=== PATIENT | female | born 1955 | race Caucasian/White ===

== ENCOUNTER 2016-08-08 19:26 | Inpatient (IN) | payer OTHER ==
[~2016-08-08] VITALS: Ht 165.1 cm; Wt 63.0 kg
[~2016-08-08 19:26] MED LIST: AMLO5TAB22 PO; APIDINJ2 SQ; CREON12 PO; ERGO50000 PO; HYDRO10 PO; INSU1INJ5 SQ; LORA0.5T PO; PROT40TA PO
[2016-08-08 19:31] VITALS: BP 90/56; PULSE 89; RESP 16; TEMP 98.7; O2SAT 98
[2016-08-08 19:59] VITALS: BP 83/52; PULSE 79; RESP 20; TEMP 97.7; O2SAT 97
[2016-08-08] MEDS ORDERED: AMLO5 PO (20:07)
[2016-08-08] MEDS ORDERED: APIDINJ SQ (20:07)
[2016-08-08] MEDS ORDERED: CREON12 PO (20:07)
[2016-08-08] MEDS ORDERED: PANT40TA3 PO (20:07)
[2016-08-08] MEDS ORDERED: LORA-373 PO (20:07)
[2016-08-08] MEDS ORDERED: NAPR220T95 PO (20:07)
[2016-08-08] MEDS ORDERED: INSU1INJ5 SQ (20:09)
[2016-08-08] MEDS ORDERED: DRIS50002 PO (20:11)
[2016-08-08] MEDS ORDERED: CORT5TAB PO (20:11)
[2016-08-08] MEDS ORDERED: HYDRO10 PO (20:11)
[2016-08-08] MEDS ORDERED: SODIUM CHLORIDE 0.9% FLUSH 5 ML FLUSH IVF PRN (20:15)
[2016-08-08 21:00] LABS: AUTOMATED NEUTROPHIL # 3.1 TH/MM3 (1.8-7.7); BASOPHIL % 0.5 % (0.0-2.0); EOSINOPHIL # 0.1 TH/MM3 (0-0.4); EOSINOPHIL % 1.8 % (0.0-4.0); HEMATOCRIT 40.1 % (35.0-46.0); HEMO FLAGS DIFF FINAL; LYMPH % 30.7 % (9.0-44.0); LYMPHOCYTE # 1.9 TH/MM3 (1.0-4.8); MEAN CELL VOLUME 90.6 FL (80.0-100.0); MEAN CORPUSCULAR HGB CONC 34.3 % (32.0-36.0); MONO % 16.9 % (0.0-8.0); NEUT % 50.1 % (16.0-70.0); PLATELET COUNT 196 TH/MM3 (150-450); RED BLOOD COUNT 4.43 MIL/MM3 (4.00-5.30); RED CELL DISTRIBUTION WIDTH 12.6 % (11.6-17.2); WHITE BLOOD COUNT 6.2 TH/MM3 (4.0-11.0)
[2016-08-08 21:14] LABS: APTT (PATIENT) 30.3 SEC (24.3-30.1); INTERNATIONAL NORMALIZED RATIO 1.1 RATIO; PROTHROMBIN TIME - PATIENT 12.2 SEC (9.8-11.6)
[2016-08-08 21:24] LABS: BICARBONATE 24.7 MEQ/L (21.0-32.0); POTASSIUM 3.6 MEQ/L (3.5-5.1)
[2016-08-08 21:28] LABS: INDIRECT BILIRUBIN 0.9 MG/DL (0.0-0.8); TOTAL BILIRUBIN ADULT 1.7 MG/DL (0.2-1.0)
[2016-08-08 21:32] VITALS: BP 97/55; PULSE 72; RESP 20; TEMP 98; O2SAT 99
[2016-08-08 21:33] VITALS: BP 72/46; PULSE 72; RESP 20; O2SAT 99
[2016-08-08] MEDS ORDERED: SODIUM CHLOR 0.9% 1000 ML INJ 1,000 ML IV ONE ×2 (22:00)
--- NOTE | 2016-08-08 22:00 | PD ---
HPI Chief Complaint: GI Complaint Time Seen by Provider: 19:49 Travel History International Travel<30 days: No Contact w/Intl Traveler<30days: No Traveled to known affect area: No History of Present Illness HPI 61yo F with metastatic melanoma with mets to abdomen, lung presents to the ED with c/o generalized weakness. Pt also with abdominal pain for 3 days. Pain is more right upper abdominal radiating to right scapula. +Nonbloody diarrhea. +Fever at home. Denies any chest pain, sob, n/v, focal weakness or numbness. Pt follows with Dr. Escobedo and is on an immuno therapy. PFSH Past Medical History Depression: Yes Cancer: Yes Cardiovascular Problems: Yes (HTN) Chemotherapy: Yes (APR 2015 ) Diabetes: Yes Patient Takes Glucophage: No Diminished Hearing: No Endocrine: No Gastrointestinal Disorders: Yes (Cholitis) GERD: Yes Genitourinary: No Hypertension: Yes Immune Disorder: No Implanted Vascular Access Dvce: Yes (l subclavian ) Musculoskeletal: No Neurologic: No Psychiatric: No Reproductive: No Respiratory: No Immunizations Current: No Radiation Therapy: Yes Triglycerides - High: Yes Tetanus Vaccination: < 5 Years Influenza Vaccination: Yes ?: Not Menopausal: Yes : 6 Para: 4 Miscarriage: 2 : 0 Ectopic : No Ovarian Cysts: No Dilation and Curettage (D&C): Yes Tubal Ligation: Yes Past Surgical History Section: No Genitourinary Surgery: Yes (hemorroids removed ) Gynecologic Surgery: Yes (tubal ligation ) Hysterectomy: No Thoracic Surgery: Yes (back cancer removal by dr. 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) Tobacco Use: No Substance Use: No Allergies-Medications (Allergen,Severity, Reaction): Coded Allergies: Penicillin (Verified Allergy, Severe, Anaphylaxis, 08/08/16) Reported Meds & Prescriptions Reported Meds & Active Scripts Active Reported Drisdol (Ergocalciferol) 50,000 Unit Cap 50,000 Units PO WEEKLY ON MONDAYS Cortef (Hydrocortisone) 5 Mg Tab 5 Mg PO HS Take with food to decrease GI upset Cortef (Hydrocortisone) 10 Mg Tab 10 Mg PO DAILY IN THE MORNING Take with food to decresae GI upset Levemir Flextouch Pen Inj (Insulin Detemir) 300 unit/3 ML Pen 5 Units SQ HS Apidra Inj (Insulin Glulisine Inj) 1,000 Unit/10 Ml Vial Unknown Dose SQ ACHS SLIDING SCALE Creon (Amylase/Lipase/Protease) 12,000-38,000-60,000 Units Cap 1 Cap PO TIDAC Lorazepam 0.5 Mg Tab 0.5 Mg PO Q4H PRN Pantoprazole (Pantoprazole Sodium) 40 Mg Tab 40 Mg PO DAILY Aleve (Naproxen Sodium) 220 Mg Tab 440 Mg PO DAILY PRN Norvasc (Amlodipine Besylate) 5 Mg Tab 5 Mg PO DAILY PRN Review of Systems Except as stated in HPI: all other systems reviewed are Neg Physical Exam Narrative GENERAL: 61yo F in mild distress. Flail appearing. SKIN: Warm and dry. HEAD: Atraumatic. Normocephalic. EYES: Pupils equal and round. No scleral icterus. No injection or drainage. ENT: No nasal bleeding or discharge. Mucous membranes pink and moist. NECK: Trachea midline. No JVD. CARDIOVASCULAR: Regular rate and rhythm. No murmur appreciated. RESPIRATORY: No accessory muscle use. Clear to auscultation. Breath sounds equal bilaterally. GASTROINTESTINAL: Abdomen soft, +TTP RUQ. No rebound tenderness or guarding. MUSCULOSKELETAL: No obvious deformities. No clubbing. No cyanosis. No edema. NEUROLOGICAL: Awake and alert. No obvious cranial nerve deficits. Motor grossly within normal limits. Normal speech. PSYCHIATRIC: Appropriate mood and affect; insight and judgment normal. Data Data Last Documented VS Vital Signs Date Time Temp Pulse Resp B/P Pulse Ox O2 Delivery O2 Flow Rate FiO2 08/08/16 21:33 72 20 72/46 99 08/08/16 21:32 98.0 Orders Basic Metabolic Panel (Bmp) (08/08/16 20:05) Complete Blood Count With Diff (08/08/16 20:05) Lipase (08/08/16 20:05) Prothrombin Time / Inr (Pt) (08/08/16 20:05) Act Partial Throm Time (Ptt) (08/08/16 20:05) Urinalysis - C+S If Indicated (08/08/16 20:05) Ct Abd/Pel W Iv Contrast(Rout) (08/08/16 20:05) Iv Access Insert/Monitor (08/08/16 20:05) Ecg Monitoring (08/08/16 20:05) Oximetry (08/08/16 20:05) Sodium Chloride 0.9% Flush (Ns Flush) (08/08/16 20:15) Hepatic Functional Panel (08/08/16 20:05) Sodium Chlor 0.9% 1000 Ml Inj (Ns 1000 M (08/08/16 22:00) Sodium Chlor 0.9% 1000 Ml Inj (Ns 1000 M (08/08/16 22:00) Ketorolac Inj (Toradol Inj) (08/08/16 22:30) Admit Order (Ed Use Only) (08/08/16 22:19) Admit To Inpatient (08/08/16 ) Vital Signs (Adult) Q4H (08/08/16 22:18) Activity Oob With Assistance (08/08/16 22:18) Diet Clear Liquid (08/09/16 Breakfast) Basic Metabolic Panel (Bmp) (08/09/16 06:00) Complete Blood Count With Diff (08/09/16 06:00) Scd Bilateral/Knee High ELIS.BID (08/08/16 22:18) Panda Bilateral/Knee High ELIS.QSHIFT (08/08/16 22:18) Morphine Inj (Morphine Inj) (08/08/16 22:30) Morphine Inj (Morphine Inj) (08/08/16 22:30) Naloxone Inj (Narcan Inj) (08/08/16 22:30) Inpatient Certification (08/08/16 ) Consult Medical Oncology (08/08/16 ) Labs Laboratory Tests Test 08/08/16 20:00 White Blood Count 6.2 TH/MM3 Red Blood Count 4.43 MIL/MM3 Hemoglobin 13.7 GM/DL Hematocrit 40.1 % Mean Corpuscular Volume 90.6 FL Mean Corpuscular Hemoglobin 31.0 PG Mean Corpuscular Hemoglobin 34.3 % Concent Red Cell Distribution Width 12.6 % Platelet Count 196 TH/MM3 Mean Platelet Volume 8.9 FL Neutrophils (%) (Auto) 50.1 % Lymphocytes (%) (Auto) 30.7 % Monocytes (%) (Auto) 16.9 % Eosinophils (%) (Auto) 1.8 % Basophils (%) (Auto) 0.5 % Neutrophils # (Auto) 3.1 TH/MM3 Lymphocytes # (Auto) 1.9 TH/MM3 Monocytes # (Auto) 1.1 TH/MM3 Eosinophils # (Auto) 0.1 TH/MM3 Basophils # (Auto) 0.0 TH/MM3 CBC Comment DIFF FINAL Differential Comment Prothrombin Time 12.2 SEC Prothromb Time International 1.1 RATIO Ratio Activated Partial 30.3 SEC Thromboplast Time Sodium Level 133 MEQ/L Potassium Level 3.6 MEQ/L Chloride Level 98 MEQ/L Carbon Dioxide Level 24.7 MEQ/L Anion Gap 10 MEQ/L Blood Urea Nitrogen 11 MG/DL Creatinine 1.31 MG/DL Estimat Glomerular Filtration 41 ML/MIN Rate Random Glucose 130 MG/DL Calcium Level 8.1 MG/DL Total Bilirubin 1.7 MG/DL Direct Bilirubin 0.8 MG/DL Indirect Bilirubin 0.9 MG/DL Aspartate Amino Transf 69 U/L (AST/SGOT) Alanine Aminotransferase 40 U/L (ALT/SGPT) Alkaline Phosphatase 182 U/L Total Protein 6.3 GM/DL Albumin 3.2 GM/DL Lipase 28 U/L [facility] Medical Decision Making Medical Screen Exam Complete: Yes Emergency Medical Condition: Yes Differential Diagnosis Electrolyte abnormality vs. dehydration vs. cholecystitis vs. metastatic disease Narrative Course 61yo F with metastatic melanoma here with generalized weakness, diarrhea and abdominal pain. Pt was also hypotensive and responded to NS IVF. Pt was never tachycardic but had fever at home. Labs reviewed, no leukocytosis. Bilirubin is elevated as well as AST and alk phos. Discussed with Dr. Escobedo who knows patient well and thinks this may be reaction to her treatment with ipilimumab. He agreed with CT a/p and recommended admission and empirically obtaining blood cultures and antibiotics. Pt given cefepime 2gm IV. Pt given toradol for pain since she didnt want narcotics initially. Discussed with Dr. Cline and accepted to his service. Critical Care Narrative Aggregate critical care time was 35 minutes. Time to perform other separately billable procedures was not included in the critical care time. My time did not include minutes spent treating any other patients simultaneously or on activities that did not directly contribute to the patient's treatment. The services I provided to this patient were to treat and/or prevent clinically significant deterioration that could result in: cardiovascular collapse or . I provided critical care services requiring my management, as noted below: Chart data review, documentation time, medication orders and management, vital sign assessments/reviewing monitor data, ordering and reviewing lab tests, ordering and interpreting/reviewing x-rays and diagnostic studies, care of the patient and discussion of the patient with the admitting physicians. Diagnosis Primary Impression: Metastatic melanoma Additional Impression: chemotherapy induced colitis Admitting Information Admitting Physician Requests: Kiara Long DO Aug 08, 2016 22:00
[2016-08-08] MEDS ORDERED: KETOROLAC TROMETHAMINE 30 MG/ML (IVP) VIAL IV PUSH ONE (22:30)
[2016-08-08] MEDS ORDERED: NALOXONE HCL 0.4 MG/ML AMP IV PRN (22:30)
[2016-08-08] MEDS ORDERED: MORPHINE SULFATE 4 MG/ML INJ IV PRN (22:30)
[2016-08-08 23:09] VITALS: BP 91/52; PULSE 72; RESP 20; O2SAT 98
[2016-08-08] MEDS ORDERED: CEFEPIME INJ 2,000 MG in SODIUM CHLORIDE 0.9% INJ 100 ML IV ONE (23:30)
[2016-08-08] MEDS ORDERED: IOHEXOL 350 MG/ML 10 ML VIAL (for RAD DIAG) IV ONE (23:42)
[2016-08-09] VITALS (12 sets, daily range): BP systolic 79–111; BP diastolic 47–58; PULSE 71–88; RESP 18–21; TEMP 96–98.9; O2SAT 94–100
--- NOTE | 2016-08-09 00:07 | HHI.HP ---
[facility] Service [facility] Primary Care Physician Terrell Escobedo MD Admission Diagnosis Abdominal pain Diagnoses: Chief Complaint: Abdominal pain, diarrhea Travel History International Travel<30 Days: No Contact w/Intl Traveler <30 Da: No Traveled to Known Affected Are: No History of Present Illness 61 Y/o with a history of DM type 1 presented to the ED with complaints of abdominal pain and diarrhea since Sunday. Patient states she ate pork ribs on Sunday and ever since she has been having diarrhea, severe abdominal cramping and generalized weakness. He was also sick with diarrhea as well. Patient states she felt feverish at home but did not take her temperature. 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 Her last does of immunotherapy was 2 weeks ago and she receives it every 3 weeks. She denies any chest pain, or short of breath. 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, immunotherapy every 3 weeks DM type 1 Colitis Past Surgical History Tubal Tonsillectomy Reported Medications Reported Meds & Active Scripts Active Reported Drisdol (Ergocalciferol) 50,000 Unit Cap 50,000 Units PO WEEKLY ON MONDAYS Cortef (Hydrocortisone) 5 Mg Tab 5 Mg PO HS Take with food to decrease GI upset Cortef (Hydrocortisone) 10 Mg Tab 10 Mg PO DAILY IN THE MORNING Take with food to decresae GI upset Levemir Flextouch Pen Inj (Insulin Detemir) 300 unit/3 ML Pen 5 Units SQ HS Apidra Inj (Insulin Glulisine Inj) 1,000 Unit/10 Ml Vial Unknown Dose SQ ACHS SLIDING SCALE Creon (Amylase/Lipase/Protease) 12,000-38,000-60,000 Units Cap 1 Cap PO TIDAC Lorazepam 0.5 Mg Tab 0.5 Mg PO Q4H PRN Pantoprazole (Pantoprazole Sodium) 40 Mg Tab 40 Mg PO DAILY Aleve (Naproxen Sodium) 220 Mg Tab 440 Mg PO DAILY PRN Norvasc (Amlodipine Besylate) 5 Mg Tab 5 Mg PO DAILY PRN Allergies: Coded Allergies: Penicillin (Verified Allergy, Severe, Anaphylaxis, 08/08/16) Active Ordered Medications Current Medications Medications (Trade) Dose Ordered Sig/Thierno Route Start Time Stop Time Status Last Admin (NS Flush) 2 ml UNSCH PRN IVF 08/08/16 20:15 (Morphine Inj) 2 mg Q3H PRN IV 08/08/16 22:30 (Morphine Inj) 3 mg Q3H PRN IV 08/08/16 22:30 (Narcan Inj) 0.4 mg UNSCH PRN IV 08/08/16 22:30 Family History Patient denies any cardiac history or diabetes. Social History Tobacco use: Quit 16 years ago Alcohol use: wine nightly Physical Exam Vital Signs Vital Signs Date Time Temp Pulse Resp B/P Pulse Ox O2 Delivery O2 Flow Rate FiO2 08/08/16 23:09 72 20 91/52 98 08/08/16 21:33 72 20 72/46 99 08/08/16 21:32 98.0 72 20 97/55 99 08/08/16 19:59 97.7 79 20 83/52 97 08/08/16 19:51 20 08/08/16 19:31 98.7 89 16 90/56 98 Physical Exam GENERAL: This is a well-nourished, well-developed patient, in no apparent distress. SKIN: No rashes, ecchymoses or lesions. Cool and dry. HEAD: Atraumatic. Normocephalic. No temporal or scalp tenderness. EYES: Pupils equal round and reactive. No injection or drainage. ENT: Nose without bleeding, purulent drainage or septal hematoma. . Airway patent. NECK: Trachea midline. No JVD or lymphadenopathy. Supple, nontender, no meningeal signs. CARDIOVASCULAR: Regular rate and rhythm without murmurs, gallops, or rubs. RESPIRATORY: Clear to auscultation. Breath sounds equal bilaterally. No wheezes , rales, or rhonchi. GASTROINTESTINAL: Abdomen soft, tender, nondistended. No hepato-splenomegaly, or palpable masses. No guarding. MUSCULOSKELETAL: Extremities without clubbing, cyanosis, or edema. No joint tenderness, effusion, or edema noted. No calf tenderness. NEUROLOGICAL: Awake and alert. Motor and sensory grossly within normal limits. Normal speech. Laboratory Laboratory Tests Test 08/08/16 20:00 White Blood Count 6.2 Red Blood Count 4.43 Hemoglobin 13.7 Hematocrit 40.1 Mean Corpuscular Volume 90.6 Mean Corpuscular Hemoglobin 31.0 Mean Corpuscular Hemoglobin 34.3 Concent Red Cell Distribution Width 12.6 Platelet Count 196 Mean Platelet Volume 8.9 Neutrophils (%) (Auto) 50.1 Lymphocytes (%) (Auto) 30.7 Monocytes (%) (Auto) 16.9 Eosinophils (%) (Auto) 1.8 Basophils (%) (Auto) 0.5 Neutrophils # (Auto) 3.1 Lymphocytes # (Auto) 1.9 Monocytes # (Auto) 1.1 Eosinophils # (Auto) 0.1 Basophils # (Auto) 0.0 CBC Comment DIFF FINAL Differential Comment Prothrombin Time 12.2 Prothromb Time International 1.1 Ratio Activated Partial 30.3 Thromboplast Time Sodium Level 133 Potassium Level 3.6 Chloride Level 98 Carbon Dioxide Level 24.7 Anion Gap 10 Blood Urea Nitrogen 11 Creatinine 1.31 Estimat Glomerular Filtration 41 Rate Random Glucose 130 Calcium Level 8.1 Total Bilirubin 1.7 Direct Bilirubin 0.8 Indirect Bilirubin 0.9 Aspartate Amino Transf 69 (AST/SGOT) Alanine Aminotransferase 40 (ALT/SGPT) Alkaline Phosphatase 182 Total Protein 6.3 Albumin 3.2 Lipase 28 Result Diagram: 08/08/16199908/08/161999 Imaging Last Impressions Abdomen/Pelvis CT 08/08/162004 Signed Impressions: Service Date/Time: Monday, August 08, 2016 23:34 - CONCLUSION: 1. Nonspecific diffuse gallbladder distention with pericholecystic fluid. This finding could be further evaluated with ultrasound. 2. Diffuse hepatic hypodensity indicating hepatic steatosis, new compared to the prior study. 3. Multiple scattered soft tissue nodules in the anterior abdominal wall, left gluteal region, and right sided retroperitoneum as well as left lower lung pulmonary nodule consistent with the patient's history of metastatic melanoma. Some of these areas are larger and some are smaller when compared to the prior study of July 2015. 4. Diffusely distended colon with multiple air-fluid levels suggesting ileus. 5. New atrophy of the pancreatic tail. Hunter Navarrete MD Assessment and Plan Problem List: (1) Abdominal pain ICD Code: R10.9 Status: Acute (2) Ocular melanoma ICD Code: C69.10 Status: Chronic Assessment and Plan 61 Y/o with a history of DM type 1, and ocular melanoma with metastases presented to the ED with complaints of abdominal pain and diarrhea since Sunday. Abdominal pain/diarrhea Images reviewed: Abdominal CT shows Nonspecific diffuse gallbladder distention with pericholecystic fluid. This finding could be further evaluated with ultrasound. Diffuse hepatic hypodensity indicating hepatic steatosis, new compared to the prior study. Multiple scattered soft tissue nodules in the anterior abdominal wall, left gluteal region, and right sided retroperitoneum as well as left lower lung pulmonary nodule consistent with the patient's history of metastatic melanoma. Some of these areas are larger and some are smaller when compared to the prior study of July 2015. Diffusely distended colon with multiple air-fluid levels suggesting ileus. New atrophy of the pancreatic tail. -Consult GI -Pain management with IV morphine -IVF hydration -Cont Cefepime as recommended by Dr. Escobedo -Clear liquids -Antiemetics as needed Ocular melanoma, chronic -Consult Dr. Escobedo DVT prophylaxis: scds Written by Charley SANDS, acting as scribe for Dr. Murray on 08/09/16 at 0000. All or portions of this note were transcribed by SHAVON Bower. I, Dr. Ramez Murray personally performed the history, physical exam, and medical decision making; and confirmed the accuracy of the information in the transcribed note. Authenticated by Dr. Ramez Murray on 08/09/16 at 04:43. Discussed Condition With Patient and RN Physician Certification 2 Midnight Certification Type: Admission for Inpatient Services Order for Inpatient Services The services are ordered in accordance with Medicare regulations or non- Medicare payer requirements, as applicable. In the case of services not specified as inpatient-only, they are appropriately provided as inpatient services in accordance with the 2-midnight benchmark. Estimated LOS (days): 3 days is the estimated time the patient will need to remain in the hospital, assuming treatment plan goals are met and no additional complications. Post-Hospital Plan: [facility] Charley Mojica Aug 09, 2016 00:07 Ramez Murray MD Aug 09, 2016 04:44
--- NOTE | 2016-08-09 00:55 | RADRPT ---
EXAM DATE/TIME: 08/08/2016 23:34 [facility] COMPARISON: CT ABDOMEN & PELVIS W CONTRAST, August 06, 2015, 16:46. INDICATIONS : Abdominal pain along with diarrhea. IV CONTRAST: 71 cc Omnipaque 350 (iohexol) IV ORAL CONTRAST: No oral contrast ingested. RADIATION DOSE: 9.96 CTDIvol (mGy) MEDICAL HISTORY : Hypertension. Cardiovascular disease Diabetes mellitus type 2. SURGICAL HISTORY : Tubal ligation. ENCOUNTER: Initial ACUITY: 2 days PAIN SCALE: 4/10 LOCATION: abdomen TECHNIQUE: Volumetric scanning of the abdomen and pelvis was performed. Using automated exposure control and ad justment of the mA and/or kV according to patient size, radiation dose was kept as low as reasonably achievable to obtain optimal diagnostic quality images. FINDINGS: LOWER LUNGS: 1.6 x 1.0 cm left lower lobe pulmonary nodule on image #2. This finding is not seen on prior CT of 03/2016. LIVER: Moderate severity diffuse hypodensity of the liver indicating hepatic steatosis. This finding is new when compared to the prior study. Ovoid hypodensity adjacent to the falciform ligament in the left lo be is more prominent than on the comparison study measuring 2.9 x 1.7 cm but does not disrupt the adj acent vessels and appearance favors focal fat. There is diffuse distention of the gallbladder. Mild p ericholecystic fluid. No calcified gallstones identified. SPLEEN: Normal size without lesion. PANCREAS: There is atrophy of the tail of the pancreas that is new compared to the prior study. No focal mass i dentified. KIDNEYS: Normal in size and shape. There is no mass, stone or hydronephrosis. ADRENAL GLANDS: Within normal limits. VASCULAR: Atherosclerotic disease of the aorta. Aorta is normal diameter. BOWEL/MESENTERY: Moderate amount of fluid with multiple air fluid levels seen throughout the colon. Colon is mildly di ffusely distended. No transition point. Small bowel diameter within normal limits. No free air or ashlyn e fluid. Appendix is not identified. ABDOMINAL WALL: 1.6 cm solid nodule is seen in the region of the right-sided rectus abdominis muscle. This has decrea sed in size when compared to the prior study. At that time it measured 2.7 cm. Nodule in the right lo wer quadrant subcutaneous adipose layer measures 7 mm compared to 1.5 cm on the prior study. RETROPERITONEUM: 3.1 cm solid mass just lateral to the lateral margin of the right psoas muscle on image #58 is increa sed in size from 2.4 cm on the prior study. BLADDER: No wall thickening or mass. REPRODUCTIVE: Within normal limits. INGUINAL: There is no lymphadenopathy or hernia. MUSCULOSKELETAL: 1.3 cm soft tissue nodule in the left gluteal region on image #58 is increased from 9 mm on the prior study. CONCLUSION: 1. Nonspecific diffuse gallbladder distention with pericholecystic fluid. This finding could be furth er evaluated with ultrasound. 2. Diffuse hepatic hypodensity indicating hepatic steatosis, new compared to the prior study. 3. Multiple scattered soft tissue nodules in the anterior abdominal wall, left gluteal region, and ri ght sided retroperitoneum as well as left lower lung pulmonary nodule consistent with the patient's h istory of metastatic melanoma. Some of these areas are larger and some are smaller when compared to t he prior study of July 2015. 4. Diffusely distended colon with multiple air-fluid levels suggesting ileus. 5. New atrophy of the pancreatic tail. Hunter Navarrete MD on August 09, 2016 at 0:37 Board Certified Radiologist. This report was verified electronically.
[2016-08-09] MEDS: MORPHINE SULFATE 4 MG/ML INJ IV PRN ×2 (04:32→09:37)
[2016-08-09 04:49] LABS: BLOOD, URINE NEG (NEG); GLUCOSE,URINE NEG (NEG); KETONE, URINE 10 mg/dL (NEG); MUCUS URINE FEW /lpf (OCC); NITRITE,URINE NEG (NEG); SQUAMOUS EPITHELIAL CELL URINE 2 /hpf (0-5); URINE COLOR YELLOW (YELLW/STRAW)
[2016-08-09 04:50] LABS: COMMENT (UR) CULT NOT INDICATED; CULTURE IF INDICATED CULT NOT INDICATED
[2016-08-09 04:54] LABS: AUTOMATED NEUTROPHIL # 1.7 TH/MM3 (1.8-7.7); BASOPHIL % 0.5 % (0.0-2.0); EOSINOPHIL % 1.5 % (0.0-4.0); HEMATOCRIT 34.6 % (35.0-46.0); HEMO FLAGS DIFF FINAL; LYMPH % 28.8 % (9.0-44.0); LYMPHOCYTE # 0.9 TH/MM3 (1.0-4.8); MEAN CELL VOLUME 91.6 FL (80.0-100.0); MEAN CORPUSCULAR HEMOGLOBIN 31.6 PG (27.0-34.0); MEAN CORPUSCULAR HGB CONC 34.5 % (32.0-36.0); MONO % 17.9 % (0.0-8.0); NEUT % 51.3 % (16.0-70.0); PLATELET COUNT 146 TH/MM3 (150-450); RED BLOOD COUNT 3.78 MIL/MM3 (4.00-5.30); RED CELL DISTRIBUTION WIDTH 12.5 % (11.6-17.2); WHITE BLOOD COUNT 3.3 TH/MM3 (4.0-11.0)
[2016-08-09 05:20] LABS: BICARBONATE 21.7 MEQ/L (21.0-32.0); POTASSIUM 3.9 MEQ/L (3.5-5.1)
--- NOTE | 2016-08-09 08:06 | MB ---
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 PATIENT PROFILE The patient is a 61-year white female. She is . She has four children. She was born in [place], [place] and has lived in [place] for a 23 years. She is a housewife. In the past, she had worked as a cashier greeter and physician office assistant. She had stopped drinking in 2008 and before this was an alcoholic. She stopped smoking three years ago and previously smoked one and a half packs of cigarettes per day for 38 years. HISTORY OF PRESENT ILLNESS The patient is a 61-year-old female whose history dates back to August of 2011 when she was found to have a melanoma of the right eye. She was treated with radioactive seeds. She subsequently developed metastatic lesions to the skin and peritoneal cavity. They were biopsied and they were consistent with melanoma. As expected, there were BRAF negative. I initially treated her with ipilimumab and she had a response but developed a severe colitis requiring steroids and infliximab. She also developed DM and vitiligo. She recovered and was treated successfully with nivolumab until recently when she developed progressive disease. I referred her to the [facility]. In addition, I spoke with her previous physician Dr. Pichardo who is currently no longer with the [facility] and is one of a few world experts in the treatment of this disease. A decision was made to reintroduce the ipiluminab, but at a low dose. This had risks of significant toxicity as ordinarily this is not what one does. There were no others treatment options available that had any likelihood of helping this woman in the face of her progressive metastatic ocular melanoma. She was given a reduced dose which took place several weeks ago. During the past several days, not unexpectedly, she has again developed explosive diarrhea, weakness. and had a temperature for one day. She was referred to the emergency room. She had a CT scan of the abdomen, pelvis. I reviewed the images and she has a significant ileus. There is also gallbladder distension with Angelita-Cholecystic fluid. She is not having any pain in the right upper quadrant, but she is having the severe diarrhea. She has atrophy of the pancreatic tail which is not surprising as she has developed diarrhea as a complication of her autoimmune process related to medications and has diabetes. PAST SURGICAL HISTORY 1. Tonsillectomy 2. Tubal ligation 3. Colonoscopy 4. Removal of a lesion right upper chest area- melanoma. PAST MEDICAL HISTORY 1. Stage IV melanoma 2. Diabetes 3. Gout 4. Elevated cholesterol 5. vitiligo 6. pancreatic insufficiency MEDICATIONS 1. Recent administration of ipilimumab 2. Amlodipine 5 mg a day 3. Creon 4. Drisdol 5. Cortef 6. Insulin 7. Lorazepam 8. Protonix ALLERGIES PENICILLIN FAMILY HISTORY Noncontributory REVIEW OF SYSTEMS Notable for abdominal cramps, severe diarrhea, slight headache this morning. Otherwise unremarkable. PHYSICAL EXAMINATION The patient appears sallow, but not acutely ill. VITAL SIGNS: Blood pressure 110/60, respiratory rate 20, pulse 80, afebrile 98% saturation. HEAD: Head is normocephalic. EYES, EARS, NOSE AND THROAT: Sclerae and conjunctivae are normal. NECK: There is no cervical, supraclavicular, axillary or inguinal adenopathy. HEART: Regular rhythm. LUNGS: Clear. ABDOMEN: Soft. Minimal tenderness. No distension. No hepatosplenomegaly. No right upper quadrant tenderness. EXTREMITIES: No edema. Skin turgor poor. MSK: There is no bone pain. NEUROLOGIC: No focal weakness. PSYCHIATRIC: Normal. SKIN: vitiligo ASSESSMENT A 61-year female with metastatic ocular melanoma who recently received ipilimumab at a reduced dose. She now has toxicity identical to what she had before and when this occurred before it became life threatening. This is a similar situation and will treat aggressively to stop progression. PLAN 1. Will begin steroids. She has brittle diabetes and she will need insulin coverage 2. In the past, her diarrhea and colitis did not resolve with steroids alone. I had to give her a infliximab, in fact I believe I gave her two doses. I have contacted our pharmacy and spoke with the pharmacist. The patient will receive 388 mg of infliximab with the other name being Remicade today. The most important things will be to continue IV fluids and to control her diabetes which will become uncontrolled due to the steroids. I told the patient that under no circumstances will I give her any further ipilimumab as this was done at significant risk which included discussions with [facility], Dr. Pichardo who is an expert, and the patient and . At this point, I am not sure that there are any available treatment options for metastatic ocular melanoma outside of phase one or possibly phase two studies. MD DAVIDA Marr /7:29 AM /7:53 AM [facility]
[2016-08-09] MEDS ORDERED: CEFEPIME INJ 2,000 MG in SODIUM CHLORIDE 0.9% INJ 100 ML IV SCH (08:30)
[2016-08-09] MEDS: methylPREDNISolone SOD SUCC 40 MG/1 ML VIAL IV PUSH SCH ×2 (09:34→21:14)
[2016-08-09] MEDS ORDERED: diphenhydrAMINE HCL 25 MG CAP PO SCH (11:15)
[2016-08-09] MEDS ORDERED: SODIUM CHLORIDE IV FLUSH (11:15)
--- NOTE | 2016-08-09 11:58 | PD.CONS ---
HPI History of Present Illness This is a 61 year old female with with a history of DM type 1,pancreatic tumor , ocular melanoma with mets to abdomen and lung who presented to the ED with complaints of lower abdominal pain and diarrhea since Sunday. She reports fever of 102. 4, chills. The diarrhea is loose liquid about 4 times a day, no hematochezia or melena. Patient with ocular melanoma with mets to abdomen and lung and her last does of immunotherapy was 2 weeks ago (ipilimumab) but that will be stopped due to severe allergic rxn, she is following with Dr. Gonzalez for this. Patient states she ate pork ribs on Sunday and ever since she has been having diarrhea, severe abdominal cramping and generalized weakness. Her was also sick with diarrhea as well. Patient had one episode of vomiting in the ED today, no hematemesis. Last colonoscopy was 6 years ago per report. According to Dr. gonzalez note, patient was given in the past steroids and Remicade for the colitis which thought to be brought on by the immunotherapy. Ct of abd/pelvis showed 1. Nonspecific diffuse gallbladder distention with pericholecystic fluid. This finding could be further evaluated with ultrasound. 2. Diffuse hepatic hypodensity indicating hepatic steatosis, new compared to the prior study. 3. Multiple scattered soft tissue nodules in the anterior abdominal wall, left gluteal region, and right sided retroperitoneum as well as left lower lung pulmonary nodule consistent with the patient's history of metastatic melanoma. Some of these areas are larger and some are smaller when compared to the prior study of July 2015. 4. Diffusely distended colon with multiple air-fluid levels suggesting ileus. 5. New atrophy of the pancreatic tail. (Haider Landis) PFSH Past Medical History ocular melanoma with mets to abdomen and lung, immunotherapy every 2 weeks DM type 1 Colitis pancreatic tumor Past Surgical History Tubal Tonsillectomy skin surgery (Haider Landis) Coded Allergies: Penicillin (Verified Allergy, Severe, Anaphylaxis, 08/08/16) Medications Current Medications Medications (Trade) Dose Ordered Sig/Thierno Route Start Time Stop Time Status Last Admin (NS Flush) 2 ml UNSCH PRN IVF 08/08/16 20:15 (Morphine Inj) 2 mg Q3H PRN IV 08/08/16 22:30 (Morphine Inj) 3 mg Q3H PRN IV 08/08/16 22:30 08/09/16 09:37 Naloxone HCl 0.4 mg 0.4 mg UNSCH PRN IV 08/08/16 22:30 (Maxipime Inj/NS Inj) 100 ml @ 200 mls/hr Q8H IV 08/09/16 08:30 08/09/16 09:35 Methylprednisolone Sodium Succinate 40 mg 40 mg Q12HR IV PUSH 08/09/16 09:00 08/09/16 09:34 Sodium Chloride 250 ml @ 0 mls/hr UNSCH PRN IV 08/09/16 13:00 08/09/16 23:59 (Remicade Inj/NS 250 ml Inj) 250 ml @ 0 mls/hr ONCE ONCE IV 08/09/16 14:00 08/09/16 14:01 (NS Flush) 2 ml BID IV FLUSH 08/09/16 21:00 (NS Flush) 2 ml UNSCH PRN IV FLUSH 08/09/16 11:15 (Benadryl Inj) 25 mg UNSCH PRN IV PUSH 08/09/16 13:00 08/09/16 23:59 (SoluCORTEF INJ) 250 mg UNSCH PRN IV 08/09/16 13:00 08/09/16 23:59 (Adrenalin (1:1000) Inj) 0.3 mg UNSCH PRN OTHER 08/09/16 13:00 08/09/16 23:59 Family History Patient denies any cardiac history or diabetes. Social History Tobacco use: Quit 16 years ago Alcohol use: wine nightly (Haider Landis) Review of Systems Constitutional: COMPLAINS OF: Fever, Chills Endocrine: DENIES: Polyuria Eyes: DENIES: Double Vision Ears, nose, mouth, throat: DENIES: Hoarseness Respiratory: DENIES: Shortness of breath Cardiovascular: DENIES: Lower Extremity Edema Gastrointestinal: COMPLAINS OF: Abdominal pain, Diarrhea, Nausea, Vomiting, DENIES: Black stools, Bloody stools, Constipation, Difficulty Swallowing, Anorexia, Swelling of Abdomen, Heartburn, Hematemesis Genitourinary: DENIES: Hematuria Musculoskeletal: DENIES: Neck pain Integumentary: DENIES: Jaundice Hematologic/lymphatic: DENIES: Bruising Immunologic/allergic: DENIES: Eczema Neurologic: DENIES: Abnormal gait Psychiatric: DENIES: Anxiety (Haider Landis) GI Exam Vitals I&O Vital Signs Date Time Temp Pulse Resp B/P Pulse Ox O2 Delivery O2 Flow Rate FiO2 08/09/16 11:21 98.2 87 20 79/47 94 08/09/16 07:56 98.4 88 20 94/50 97 08/09/16 04:34 98.9 80 21 111/56 98 08/09/16 00:38 74 20 100/58 100 08/08/16 23:09 72 20 91/52 98 08/08/16 21:33 72 20 72/46 99 08/08/16 21:32 98.0 72 20 97/55 99 08/08/16 19:59 97.7 79 20 83/52 97 08/08/16 19:51 20 08/08/16 19:31 98.7 89 16 90/56 98 Imaging Last Impressions Abdomen/Pelvis CT 08/08/162004 Signed Impressions: Service Date/Time: Monday, August 08, 2016 23:34 - CONCLUSION: 1. Nonspecific diffuse gallbladder distention with pericholecystic fluid. This finding could be further evaluated with ultrasound. 2. Diffuse hepatic hypodensity indicating hepatic steatosis, new compared to the prior study. 3. Multiple scattered soft tissue nodules in the anterior abdominal wall, left gluteal region, and right sided retroperitoneum as well as left lower lung pulmonary nodule consistent with the patient's history of metastatic melanoma. Some of these areas are larger and some are smaller when compared to the prior study of July 2015. 4. Diffusely distended colon with multiple air-fluid levels suggesting ileus. 5. New atrophy of the pancreatic tail. Hunter Navarrete MD Laboratory Test 08/08/16 08/09/16 08/09/16 20:00 04:20 04:24 White Blood Count 6.2 TH/MM3 3.3 TH/MM3 Red Blood Count 4.43 MIL/MM3 3.78 MIL/MM3 Hemoglobin 13.7 GM/DL 12.0 GM/DL Hematocrit 40.1 % 34.6 % Mean Corpuscular Volume 90.6 FL 91.6 FL Mean Corpuscular Hemoglobin 31.0 PG 31.6 PG Mean Corpuscular Hemoglobin 34.3 % 34.5 % Concent Red Cell Distribution Width 12.6 % 12.5 % Platelet Count 196 TH/MM3 146 TH/MM3 Mean Platelet Volume 8.9 FL 8.2 FL Neutrophils (%) (Auto) 50.1 % 51.3 % Lymphocytes (%) (Auto) 30.7 % 28.8 % Monocytes (%) (Auto) 16.9 % 17.9 % Eosinophils (%) (Auto) 1.8 % 1.5 % Basophils (%) (Auto) 0.5 % 0.5 % Neutrophils # (Auto) 3.1 TH/MM3 1.7 TH/MM3 Lymphocytes # (Auto) 1.9 TH/MM3 0.9 TH/MM3 Monocytes # (Auto) 1.1 TH/MM3 0.6 TH/MM3 Eosinophils # (Auto) 0.1 TH/MM3 0.0 TH/MM3 Basophils # (Auto) 0.0 TH/MM3 0.0 TH/MM3 CBC Comment DIFF FINAL DIFF FINAL Differential Comment Prothrombin Time 12.2 SEC Prothromb Time International 1.1 RATIO Ratio Activated Partial 30.3 SEC Thromboplast Time Sodium Level 133 MEQ/L 142 MEQ/L Potassium Level 3.6 MEQ/L 3.9 MEQ/L Chloride Level 98 MEQ/L 109 MEQ/L Carbon Dioxide Level 24.7 MEQ/L 21.7 MEQ/L Anion Gap 10 MEQ/L 11 MEQ/L Blood Urea Nitrogen 11 MG/DL 12 MG/DL Creatinine 1.31 MG/DL 0.94 MG/DL Estimat Glomerular Filtration 41 ML/MIN 61 ML/MIN Rate Random Glucose 130 MG/DL 72 MG/DL Calcium Level 8.1 MG/DL 7.7 MG/DL Total Bilirubin 1.7 MG/DL Direct Bilirubin 0.8 MG/DL Indirect Bilirubin 0.9 MG/DL Aspartate Amino Transf 69 U/L (AST/SGOT) Alanine Aminotransferase 40 U/L (ALT/SGPT) Alkaline Phosphatase 182 U/L Total Protein 6.3 GM/DL Albumin 3.2 GM/DL Lipase 28 U/L Urine Color YELLOW Urine Turbidity CLEAR Urine pH 5.0 Urine Specific Bailey 1.024 Urine Protein NEG mg/dL Urine Glucose (UA) NEG mg/dL Urine Ketones 10 mg/dL Urine Occult Blood NEG Urine Nitrite NEG Urine Bilirubin NEG Urine Urobilinogen LESS THAN 2.0 MG/DL Urine Leukocyte Esterase NEG Urine RBC LESS THAN 1 /hpf Urine WBC LESS THAN 1 /hpf Urine Squamous Epithelial 2 /hpf Cells Urine Mucus FEW /lpf Microscopic Urinalysis Comment CULT NOT INDICATED Date/Time Procedure Status Source Growth 08/08/16 21:00 Aerobic Blood Culture Received Blood Peripheral Pending 08/08/16 21:00 Anaerobic Blood Culture Received Blood Peripheral Pending Physical Examination HEENT: normocephalic; atraumatic; no jaundice. Throat is clear. NECK: Neck is supple, no JVD, no lymphadenopathy. CHEST: Chest is clear to auscultation and percussion. CARDIAC: Regular rate and rhythm with no murmur gallop or rubs. ABDOMEN: Soft, nondistended, diffused tenderness; no hepatosplenomegaly; bowel sounds are present in all four quadrants. EXTREMITIES: No clubbing, cyanosis, or edema. SKIN: Normal; no rash; no jaundice. CARD PAINTER: No focal deficits; alert and oriented times three. (Haider Landis) Assessment and Plan Plan - Abdominal pain/diarrhea- Patient states she ate pork ribs on Sunday and ever since she has been having diarrhea, severe abdominal cramping and generalized weakness with fever and chills. Her was also sick with diarrhea as well Ct of abd/pelvis showed 1. Nonspecific diffuse gallbladder distention with pericholecystic fluid. This finding could be further evaluated with ultrasound. 2. Diffuse hepatic hypodensity indicating hepatic steatosis, new compared to the prior study. 3. Multiple scattered soft tissue nodules in the anterior abdominal wall, left gluteal region, and right sided retroperitoneum as well as left lower lung pulmonary nodule consistent with the patient's history of metastatic melanoma. Some of these areas are larger and some are smaller when compared to the prior study of July 2015. 4. Diffusely distended colon with multiple air-fluid levels suggesting ileus. 5. New atrophy of the pancreatic tail. - ileus- Ct scan as above - Colitis- she has hx of this. According to Dr. gonzalez note, patient was given in the past steroids and Remicade for the colitis which thought to be brought on by the immunotherapy (ipilimumab). - Gallbladder distension - Pancytopenia secondary to immunotherapy - Pancreatic atrophy- patient has been on Creon for this - Elevated LFTs/fatty liver, could be secondary to meds, she does drinks 1 c wine daily - Ocular melanoma with lung and gastric mets, chronic- Dr. Gonzalez on the case, immunotherapy 2 weeks ago - DM type 1 per attending Plan: - Clear liquids - US - Stool studies - Remicade and Prednisone ordered by Dr. Fanny SCHNEIDER in am - Supportive care - Patient seen and examined by Dr. peters and myself and this note is written on his behalf. (Haider Landis) Physician Comments Seen and examined with [employer], medicine induced diarrhea. Check stool studies. Steroids and remicaide ordered by dr. smith. U/S gall bladder. Will follow, thank you (Baron Peters MD) Haider Landis Aug 09, 2016 11:58 Baron Peters MD Aug 09, 2016 15:16
[2016-08-09] MEDS ORDERED: GLUCAGON 1 MG/ML VIAL OTHER PRN (12:00)
[2016-08-09] MEDS ORDERED: DEXTROSE 50% IN WATER 50 ML VIAL(D50) IV PUSH PRN (12:00)
[2016-08-09] MEDS ORDERED: diphenhydrAMINE HCL 50 MG/ML VIAL IV PUSH PRN (13:00)
[2016-08-09] MEDS ORDERED: EPINEPHrine HCL (1:1000) 1 MG/ML VIAL OTHER PRN (13:00)
[2016-08-09] MEDS ORDERED: HYDROCORTISONE SOD SUCCINATE 100 MG VIAL IV PRN (13:00)
[2016-08-09] MEDS ORDERED: SODIUM CHLOR 0.9% 250 ML IV PRN (13:00)
[2016-08-09] MEDS ORDERED: ACETAMINOPHEN 325 MG TAB PO SCH (13:00)
[2016-08-09] MEDS: SODIUM CHLOR 0.9% 1000 ML INJ 1,000 ML IV SCH ×2 (13:54→23:53)
[2016-08-09] MEDS ORDERED: INFLIXIMAB IV ONE ×2 (14:00→18:00)
[2016-08-09] MEDS ORDERED: SODIUM CHLOR 0.9% IV ONE ×2 (14:00→18:00)
[2016-08-09] MEDS: INSULIN ASPART SUPPLEMENTAL SCALE SQ SCH ×2 (16:00→21:45)
[2016-08-09] MEDS ORDERED: INSULIN ASPART 1,000 UNITS/10 ML VIAL SQ ONE (18:00)
[2016-08-09] MEDS ORDERED: SODIUM CHLOR 0.9% 1000 ML INJ 1,000 ML IV ONE (18:00)
[2016-08-09] MEDS ORDERED: SODIUM CHLORID 0.9% 500 ML INJ 500 ML IV PRN (18:00)
[2016-08-09 18:25] LABS: C. DIFF EPI 027 PRESUMPTIVE NEGATIVE (NEGATIVE); C. DIFF TOXIN PCR NEGATIVE (NEGATIVE)
--- NOTE | 2016-08-09 20:47 | RADRPT ---
EXAM DATE/TIME: 08/09/2016 20:02 [facility] COMPARISON: CT ABDOMEN & PELVIS W CONTRAST, August 08, 2016, 23:34. EXTERNAL COMPARISON : [facility], US ABDOMEN LIVER, April 11, 2012 INDICATIONS : Nausea/vomiting. MEDICAL HISTORY : Hypertension. Back cancer. Ocular melanoma. Hyperlipidemia. Colitis. GERD. Diabetes. Depression. SURGICAL HISTORY : Tonsillectomy. Tubal ligation. Back cancer removal. D&C. Chemotherapy. Radiation therapy. Infusapor t left chest. ENCOUNTER: Initial ACUITY: 1 day PAIN SCORE: 3/10 LOCATION: Right upper quadrant MEASUREMENTS: LIVER: 16.7 cm length COMMON DUCT: 5 mm RIGHT KIDNEY: 9.9 x 5.0 x 4.8 cm FINDINGS: LIVER: Increased echotexture characteristic of hepatic steatosis and mild hepatomegaly. Focal fatty sparing near the falciform ligament. COMMON DUCT: There is cyst is present. There is wall edema. GALLBLADDER: Contains no stones, demonstrates no wall thickening or pericholecystic fluid. PANCREAS: The visualized portions are within normal limits. RIGHT KIDNEY: No evidence of hydronephrosis, stone, or mass. CONCLUSION: 1. Cholelithiasis and gallbladder wall thickening with negative sonographic Chu sign. In the appro priate clinical setting cholecystitis can have this appearance. 2. Hepatomegaly and hepatic steatosis. Jeanmarie Rich MD on August 09, 2016 at 20:43 Board Certified Radiologist. This report was verified electronically.
[2016-08-09] MEDS: SODIUM CHLORIDE IV FLUSH SCH (21:00)
[2016-08-09] MEDS ORDERED: ZOLPIDEM TARTRATE 5 MG TAB PO ONE (21:30)
[2016-08-10] VITALS: BP 105/53; PULSE 70; RESP 16; TEMP 97; O2SAT 96
[2016-08-10 04:00] VITALS: BP 98/59; PULSE 70; RESP 17; TEMP 97; O2SAT 97
[2016-08-10] MEDS: INSULIN ASPART SUPPLEMENTAL SCALE SQ SCH ×4 (05:49→19:34)
[2016-08-10] MEDS ORDERED: SODIUM CHLOR 0.9% 1000 ML INJ 1,000 ML IV ONE (07:30)
[2016-08-10 08:00] VITALS: BP 118/67; PULSE 73; RESP 16; TEMP 96.5; O2SAT 100
--- NOTE | 2016-08-10 08:23 | RADRPT ---
EXAM DATE/TIME: 08/10/2016 06:48 [facility] COMPARISON: No previous studies available for comparison. INDICATIONS: Diffused abdominal discomfort, evaluate ileus MEDICAL HISTORY: Ocular melanoma with metastatic disease, hx of tumors in lungs, pancreas SURGICAL HISTORY: Infusaport ENCOUNTER: Subsequent ACUITY: 2 days PAIN SCORE: 4/10 LOCATION: Bilateral abdomen FINDINGS: Lung bases are clear. There is no significant obstruction or stool in colon. Degenerative changes a re seen in lumbar spine. No abdominal calcification is evident. CONCLUSION: Nonspecific bowel gas pattern. Fareed Azul MD FACR on August 10, 2016 at 7:43 Board Certified Radiologist. This report was verified electronically.
[2016-08-10] MEDS: SODIUM CHLORIDE IV FLUSH SCH ×2 (08:48→19:33)
[2016-08-10] MEDS: methylPREDNISolone SOD SUCC 40 MG/1 ML VIAL IV PUSH SCH ×2 (08:48→19:33)
--- NOTE | 2016-08-10 10:47 | HHI.PR ---
Subjective Remarks Patient in nad. No n/v. Still with diarrhea 2 times in the morning. Abd pain controlled. Walking in the room. Feels much better. Tolerates CLD. Objective Vitals Vital Signs Date Time Temp Pulse Resp B/P Pulse Ox O2 Delivery O2 Flow Rate FiO2 08/10/16 08:00 96.5 73 16 118/67 100 08/10/16 04:00 97.0 70 17 98/59 97 08/10/16 00:00 97.0 70 16 105/53 96 08/09/16 22:30 96.4 75 18 90/55 96 08/09/16 21:09 96.0 71 18 96/55 97 08/09/16 20:47 96.5 74 18 97/50 97 08/09/16 19:46 96.0 77 18 99/56 08/09/16 18:54 96.8 78 18 87/50 95 08/09/16 18:33 96.8 78 18 91/54 08/09/16 15:46 98.0 84 20 87/50 96 08/09/16 11:53 82/50 08/09/16 11:21 98.2 87 20 79/47 94 I/O 08/09/16 08/09/16 08/09/16 08/10/16 08/10/16 08/10/16 07:00 15:00 23:00 07:00 15:00 23:00 Intake Total 480 ml Output Total 200 ml Balance 280 ml Intake Oral 480 ml Output Stool Total 200 ml # Voids 2 1 2 Result Diagram: 08/09/16 0420 08/09/16 0420 Imaging Last Impressions Gall Bladder Ultrasound 08/09/16 0000 Signed Impressions: Service Date/Time: Tuesday, August 09, 2016 20:02 - CONCLUSION: 1. Cholelithiasis and gallbladder wall thickening with negative sonographic Chu sign. In the appropriate clinical setting cholecystitis can have this appearance. 2. Hepatomegaly and hepatic steatosis. Jeanmarie Rich MD Abdomen/Pelvis CT 08/08/162004 Signed Impressions: Service Date/Time: Monday, August 08, 2016 23:34 - CONCLUSION: 1. Nonspecific diffuse gallbladder distention with pericholecystic fluid. This finding could be further evaluated with ultrasound. 2. Diffuse hepatic hypodensity indicating hepatic steatosis, new compared to the prior study. 3. Multiple scattered soft tissue nodules in the anterior abdominal wall, left gluteal region, and right sided retroperitoneum as well as left lower lung pulmonary nodule consistent with the patient's history of metastatic melanoma. Some of these areas are larger and some are smaller when compared to the prior study of July 2015. 4. Diffusely distended colon with multiple air-fluid levels suggesting ileus. 5. New atrophy of the pancreatic tail. Hunter Navarrete MD Objective Remarks GENERAL: This is a well-nourished, well-developed patient, in no apparent distress. SKIN: No rashes, ecchymoses or lesions. Cool and dry. HEAD: Atraumatic. Normocephalic. No temporal or scalp tenderness. EYES: Pupils equal round and reactive. No injection or drainage. ENT: Nose without bleeding, purulent drainage or septal hematoma. . Airway patent. NECK: Trachea midline. No JVD or lymphadenopathy. Supple, nontender, no meningeal signs. CARDIOVASCULAR: Regular rate and rhythm without murmurs, gallops, or rubs. RESPIRATORY: Clear to auscultation. Breath sounds equal bilaterally. No wheezes , rales, or rhonchi. GASTROINTESTINAL: Abdomen soft, tender, nondistended. No hepato-splenomegaly, or palpable masses. No guarding. MUSCULOSKELETAL: Extremities without clubbing, cyanosis, or edema. No joint tenderness, effusion, or edema noted. No calf tenderness. NEUROLOGICAL: Awake and alert. Motor and sensory grossly within normal limits. Normal speech. 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 Patient with multiple autoimmune diseases Abdominal pain. Improved. Diarrhea, possible colitis related to ipilimumab. Pancreatic atrophy. Patient has been on Creon. 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 Accuchecks, resume long actiong and ISS. Pancytopenia secondary to immunotherapy Images reviewed: Abdominal CT shows Nonspecific diffuse gallbladder distention with pericholecystic fluid. This finding could be further evaluated with ultrasound. Diffuse hepatic hypodensity indicating hepatic steatosis, new compared to the prior study. Multiple scattered soft tissue nodules in the anterior abdominal wall, left gluteal region, and right sided retroperitoneum as well as left lower lung pulmonary nodule consistent with the patient's history of metastatic melanoma. Some of these areas are larger and some are smaller when compared to the prior study of July 2015. Diffusely distended colon with multiple air-fluid levels suggesting ileus. New atrophy of the pancreatic tail. Abnormal imaging of GB with nonspecific diffuse gallbladder distention with pericholecystic fluid on CT Scan. GB Ultrasound (08/09/16) reviewed Cholelithiasis and gallbladder wall thickening with negative sonographic Chu sign. In the appropriate clinical setting cholecystitis can have this appearance. 2. Hepatomegaly and hepatic steatosis. No nausea/RUQ tenderness/Chu's sign. LFT stable Remicade and Prednisone per Dr. Escobedo Monitor stool output Pain management with IV morphine IVF hydration DC Cefepime as recommended by Dr. Escobedo. Clear liquids, advance as tolerated Antiemetics as needed Ocular melanoma, chronic-Consult Dr. Escobedo Consult GI and hem/onc following DVT prophylaxis: scds Discussed Condition With Patient and nurse Nyla Spencer MD Aug 10, 2016 10:47
[2016-08-10] MEDS: SODIUM CHLOR 0.9% 1000 ML INJ 1,000 ML IV SCH ×2 (11:24→23:45)
--- NOTE | 2016-08-10 11:40 | HHI.GIFU ---
Subjective Remarks Resting in bed. States that she is still having the significant diarrhea without improvement. She reports that so far today, she has had 2 loose stools , but that these were both urgent and large. No bleeding. (Ana Cristina Kahn) Objective Vitals I&O Vital Signs Date Time Temp Pulse Resp B/P Pulse Ox O2 Delivery O2 Flow Rate FiO2 08/10/16 08:00 96.5 73 16 118/67 100 08/10/16 04:00 97.0 70 17 98/59 97 08/10/16 00:00 97.0 70 16 105/53 96 08/09/16 22:30 96.4 75 18 90/55 96 08/09/16 21:09 96.0 71 18 96/55 97 08/09/16 20:47 96.5 74 18 97/50 97 08/09/16 19:46 96.0 77 18 99/56 08/09/16 18:54 96.8 78 18 87/50 95 08/09/16 18:33 96.8 78 18 91/54 08/09/16 15:46 98.0 84 20 87/50 96 08/09/16 11:53 82/50 I/O 08/09/16 08/09/16 08/09/16 08/10/16 08/10/16 08/10/16 07:00 15:00 23:00 07:00 15:00 23:00 Intake Total 480 ml Output Total 200 ml Balance 280 ml Intake Oral 480 ml Output Stool Total 200 ml # Voids 2 1 2 Laboratory Laboratory Tests Test 08/09/16 14:55 Stool C. difficile Toxin (PCR) NEGATIVE Stl C. difficile Toxin PRESUMPTIVE Epiderm 027 NEGATIVE Date/Time Procedure Status Source Growth 08/09/16 14:55 Cryptosporidium Exam Resulted Stool Stool Pending 08/09/16 14:55 Stool Pus (FIDEL) - Final Resulted Stool Stool FEW WBC'S 08/09/16 14:55 Giardia Antigen (FIDEL) Resulted Stool Stool Pending 08/09/16 14:55 Received Stool Stool Pending 08/08/16 21:00 Aerobic Blood Culture - Preliminary Resulted Blood Peripheral NO GROWTH IN 1 DAY 08/08/16 21:00 Anaerobic Blood Culture - Preliminary Resulted Blood Peripheral NO GROWTH IN 1 DAY Imaging Last Impressions Gall Bladder Ultrasound 08/09/16 0000 Signed Impressions: Service Date/Time: Tuesday, August 09, 2016 20:02 - CONCLUSION: 1. Cholelithiasis and gallbladder wall thickening with negative sonographic Chu sign. In the appropriate clinical setting cholecystitis can have this appearance. 2. Hepatomegaly and hepatic steatosis. Jeanmarie Rich MD Abdomen/Pelvis CT 08/08/162004 Signed Impressions: Service Date/Time: Monday, August 08, 2016 23:34 - CONCLUSION: 1. Nonspecific diffuse gallbladder distention with pericholecystic fluid. This finding could be further evaluated with ultrasound. 2. Diffuse hepatic hypodensity indicating hepatic steatosis, new compared to the prior study. 3. Multiple scattered soft tissue nodules in the anterior abdominal wall, left gluteal region, and right sided retroperitoneum as well as left lower lung pulmonary nodule consistent with the patient's history of metastatic melanoma. Some of these areas are larger and some are smaller when compared to the prior study of July 2015. 4. Diffusely distended colon with multiple air-fluid levels suggesting ileus. 5. New atrophy of the pancreatic tail. Hunter Navarrete MD Physical Exam HEENT: Normocephalic; atraumatic; no jaundice. Throat is clear. NECK: Neck is supple, no JVD, no lymphadenopathy. CHEST: Chest is clear to auscultation and percussion. CARDIAC: RRR ABDOMEN: Soft, nondistended, nontender; no hepatosplenomegaly; bowel sounds are present in all four quadrants. EXTREMITIES: No clubbing, cyanosis, or edema. SKIN: Normal; no rash; no jaundice. ROCKET ENGINE TESTER: No focal deficits; alert and oriented times three. (Ana Cristina KahnP) Assessment and Plan Plan ASSESSMENT: - Diarrhea, possible colitis related to ipilimumab. Abdomen/Pelvis CT (08/08/16 )----> 1. Nonspecific diffuse gallbladder distention with pericholecystic fluid. This finding could be further evaluated with ultrasound. 2. Diffuse hepatic hypodensity indicating hepatic steatosis, new compared to the prior study. 3. Multiple scattered soft tissue nodules in the anterior abdominal wall, left gluteal region, and right sided retroperitoneum as well as left lower lung pulmonary nodule consistent with the patient's history of metastatic melanoma. Some of these areas are larger and some are smaller when compared to the prior study of July 2015. 4. Diffusely distended colon with multiple air-fluid levels suggesting ileus. 5. New atrophy of the pancreatic tail. CDiff negative. Stool few WBC. Giardia pending. Add enteric pathogen stool culture. Pt was started on Solumedrol and had Remicade x 1. PT reports that she is still having significant diarrhea- 2 loose stools today, but states they were large and urgent. - Abnormal imaging of GB with nonspecific diffuse gallbladder distention with pericholecystic fluid on CT Scan. GB Ultrasound (08/09/16)--> Cholelithiasis and gallbladder wall thickening with negative sonographic Chu sign. In the appropriate clinical setting cholecystitis can have this appearance. 2. Hepatomegaly and hepatic steatosis. No nausea/ RUQ tenderness/Chu's sign. LFT stable at T. Bili 1.7, AST 69, ALT 40, ALk Phosph 182. - Pancytopenia secondary to immunotherapy - Pancreatic atrophy. Patient has been on Creon for this - Elevated LFTs/fatty liver, could be secondary to meds, she does drinks 1 c wine daily. Stable. 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 Escobedo on the case, immunotherapy 2 weeks ago - DM type 1 per attending Plan: - NOMI - Await Stool studies - Remicade and Prednisone per Dr. Escobedo - Monitor stool output - Supportive care - Patient seen and examined by Dr. Peters and myself and this note is written on his behalf. (Ana Cristina Kahn) Physician Comments Seen and examined with [employer]ING [employer]ER, still with diarrhea, c. diff -ve, remainder of stool studies-p. Steroids and Remicaide. Lomotil as needed. Consider consult for cholecystits if not improved. (Baron Peters MD) Ana Cristina Kahn Aug 10, 2016 11:39 Baron Peters MD Aug 10, 2016 13:42
[2016-08-10 12:00] VITALS: BP 114/63; PULSE 84; RESP 18; TEMP 96.3; O2SAT 100
[2016-08-10] MEDS: MORPHINE SULFATE 4 MG/ML INJ IV PRN (15:31)
[2016-08-10 16:00] VITALS: BP 125/78; PULSE 82; RESP 18; TEMP 96; O2SAT 100
--- NOTE | 2016-08-10 19:47 | PD.ONC.PN ---
Subjective Subjective Remarks diarrhea present but no longer explosive and less cramping. patient points out to me that the subcutaneous mets from the melanoma are much smaller and in one case gone. Objective Data Date Time Temp Pulse Resp B/P Pulse Ox O2 Delivery O2 Flow Rate FiO2 08/10/16 16:00 96.0 82 18 125/78 100 08/10/16 12:00 96.3 84 18 114/63 100 08/10/16 08:00 96.5 73 16 118/67 100 08/10/16 04:00 97.0 70 17 98/59 97 08/10/16 00:00 97.0 70 16 105/53 96 08/09/16 22:30 96.4 75 18 90/55 96 08/09/16 21:09 96.0 71 18 96/55 97 08/09/16 20:47 96.5 74 18 97/50 97 08/09/16 19:46 96.0 77 18 99/56 08/10/16 08/10/16 08/10/16 07:00 15:00 23:00 Intake Total 1440 ml 2345 ml Balance 1440 ml 2345 ml Result Diagram: 08/09/16 0420 08/09/16 0420 Culture Results Microbiology Date/Time Procedure Status Source Growth 08/08/16 21:00 Aerobic Blood Culture - Preliminary Resulted Blood Peripheral NO GROWTH IN 1 DAY 08/08/16 21:00 Anaerobic Blood Culture - Preliminary Resulted Blood Peripheral NO GROWTH IN 1 DAY 08/08/16 21:00 Aerobic Blood Culture - Preliminary Resulted Blood Peripheral NO GROWTH IN 1 DAY 08/08/16 21:00 Anaerobic Blood Culture - Preliminary Resulted Blood Peripheral NO GROWTH IN 1 DAY 08/09/16 14:55 - Final Complete Stool Stool NO ENTERIC PATHOGENS DETECTED BY PCR... 08/09/16 14:55 Cryptosporidium Exam Resulted Stool Stool Pending 08/09/16 14:55 Stool Pus (FIEDL) - Final Resulted Stool Stool FEW WBC'S 08/09/16 14:55 Giardia Antigen (FIDEL) Resulted Stool Stool Pending Imaging Studies Last 24 hours Impressions Abdomen X-Ray 08/10/16 0600 Signed Impressions: Service Date/Time: July 06:48 - CONCLUSION: Nonspecific bowel gas pattern. Fareed Azul MD FACR Administered Medications Medications (Trade) Dose Ordered Sig/Thierno Route PRN Reason Start Time Stop Time Status Last Admin Dose Admin Morphine Sulfate (Morphine Inj) 3 mg Q3H PRN IV Pain 6-10 08/08/16 22:30 08/10/16 15:31 Methylprednisolone Sodium Succinate (SoluMEDROL INJ) 40 mg Q12HR IV PUSH 08/09/16 09:00 08/10/16 19:33 IV Flush 2 ml 2 ml BID IV FLUSH 08/09/16 21:00 08/10/16 19:33 Sodium Chloride (NS 1000 ml Inj) 1,000 ml @ 84 mls/hr [id number] IV 08/09/16 12:00 08/10/16 11:24 Objective Remarks GENERAL: Well-nourished, well-developed patient. SKIN: Warm and dry. HEAD: Normocephalic. EYES: No scleral icterus. No injection or drainage. NECK: Supple, trachea midline. No JVD or lymphadenopathy. LYMPHATIC: No adenopathy. CARDIOVASCULAR: Regular rate and rhythm without murmurs. RESPIRATORY: Breath sounds equal bilaterally. No accessory muscle use. GASTROINTESTINAL: Abdomen soft, non-tender, nondistended. no right upper quadrant pain or tenderness. EXTREMITIES: No cyanosis, or edema. MUSCULOSKELETAL: Adequate muscle tone. NEUROLOGICAL: No obvious focal deficit. Awake, alert, and oriented x3. PSYCHIATRIC: Appropriate mood and affect; insight and judgment normal. Assessment/Plan Assessment 1: patient beginning to improve mostly a result of the remicade. Will continue steroids but not increase dose. Clinically well and does not appear to have acute cholecystitis. the steroids will play havoc with her DM 2: In less then three weeks she has had a remarkable response to tx. A subcut axillary lesion is 70 % smaller and 2 other subcut lesions are gone. would continue steroids, insulin coverage and iv fluids which can be tapered as she improves. Appreciate all the help. Terrell Escobedo MD Aug 10, 2016 19:47
[2016-08-10 20:00] VITALS: BP 111/69; PULSE 83; RESP 18; TEMP 96.3; O2SAT 99
[2016-08-10] MEDS: ZOLPIDEM TARTRATE 5 MG TAB PO PRN (21:03)
[2016-08-11] VITALS: BP 111/68; PULSE 66; RESP 17; TEMP 96.6; O2SAT 99
[2016-08-11 04:00] VITALS: BP 129/78; PULSE 72; RESP 17; TEMP 97.7; O2SAT 99
[2016-08-11] MEDS: INSULIN ASPART SUPPLEMENTAL SCALE SQ SCH ×4 (06:27→20:23)
[2016-08-11 08:00] VITALS: BP 125/76; PULSE 79; RESP 18; TEMP 98; O2SAT 98
--- NOTE | 2016-08-11 08:17 | HHI.DS ---
Discharge Summary Admission Date Aug 08, 2016 at 22:22 Discharge Date: Aug 13, 2016 Admitting Diagnosis Abdominal pain (1) Abdominal pain ICD Code: R10.9 Diagnosis: Principal (2) Ocular melanoma ICD Code: C69.10 Diagnosis: Secondary Procedures none Brief History - From Admission 61 Y/o with a history of DM type 1 presented to the ED with complaints of abdominal pain and diarrhea since Sunday. Patient states she ate pork ribs on Sunday and ever since she has been having diarrhea, severe abdominal cramping and generalized weakness. He was also sick with diarrhea as well. Patient states she felt feverish at home but did not take her temperature. 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 Her last does of immunotherapy was 2 weeks ago and she receives it every 3 weeks. She denies any chest pain, or short of breath. CBC/BMP: 08/09/16 0420 08/09/16 0420 Significant Findings Laboratory Tests Test 08/08/16 08/09/16 08/09/16 20:00 04:20 04:24 Monocytes (%) (Auto) 16.9 % 17.9 % (0.0-8.0) (0.0-8.0) Monocytes # (Auto) 1.1 TH/MM3 (0-0.9) Prothrombin Time 12.2 SEC (9.8-11.6) Activated Partial 30.3 SEC Thromboplast Time (24.3-30.1) Sodium Level 133 MEQ/L (136-145) Creatinine 1.31 MG/DL (0.50-1.00) Estimat Glomerular Filtration 41 ML/MIN (>89) 61 ML/MIN (>89) Rate Random Glucose 130 MG/DL 72 MG/DL (74-106) (74-106) Calcium Level 8.1 MG/DL 7.7 MG/DL (8.5-10.1) (8.5-10.1) Total Bilirubin 1.7 MG/DL (0.2-1.0) Direct Bilirubin 0.8 MG/DL (0.0-0.2) Indirect Bilirubin 0.9 MG/DL (0.0-0.8) Aspartate Amino Transf 69 U/L (15-37) (AST/SGOT) Alkaline Phosphatase 182 U/L (45-117) Total Protein 6.3 GM/DL (6.4-8.2) Albumin 3.2 GM/DL (3.4-5.0) Lipase 28 U/L (73-393) White Blood Count 3.3 TH/MM3 (4.0-11.0) Red Blood Count 3.78 MIL/MM3 (4.00-5.30) Hematocrit 34.6 % (35.0-46.0) Platelet Count 146 TH/MM3 (150-450) Neutrophils # (Auto) 1.7 TH/MM3 (1.8-7.7) Lymphocytes # (Auto) 0.9 TH/MM3 (1.0-4.8) Chloride Level 109 MEQ/L (98-107) Urine Ketones 10 mg/dL (NEG) Urine Mucus FEW /lpf (OCC) Imaging Last Impressions Abdomen X-Ray 08/10/16 0600 Signed Impressions: Service Date/Time: July 06:48 - CONCLUSION: Nonspecific bowel gas pattern. Fareed Azul MD FACR Gall Bladder Ultrasound 08/09/16 0000 Signed Impressions: Service Date/Time: Tuesday, August 09, 2016 20:02 - CONCLUSION: 1. Cholelithiasis and gallbladder wall thickening with negative sonographic Chu sign. In the appropriate clinical setting cholecystitis can have this appearance. 2. Hepatomegaly and hepatic steatosis. Jeanmarie Rich MD Abdomen/Pelvis CT 08/08/162004 Signed Impressions: Service Date/Time: Monday, August 08, 2016 23:34 - CONCLUSION: 1. Nonspecific diffuse gallbladder distention with pericholecystic fluid. This finding could be further evaluated with ultrasound. 2. Diffuse hepatic hypodensity indicating hepatic steatosis, new compared to the prior study. 3. Multiple scattered soft tissue nodules in the anterior abdominal wall, left gluteal region, and right sided retroperitoneum as well as left lower lung pulmonary nodule consistent with the patient's history of metastatic melanoma. Some of these areas are larger and some are smaller when compared to the prior study of July 2015. 4. Diffusely distended colon with multiple air-fluid levels suggesting ileus. 5. New atrophy of the pancreatic tail. Hunter Navarrete MD PE at Discharge GENERAL: This is a well-nourished, well-developed patient, in no apparent distress. SKIN: No rashes, ecchymoses or lesions. Cool and dry. HEAD: Atraumatic. Normocephalic. No temporal or scalp tenderness. EYES: Pupils equal round and reactive. No injection or drainage. ENT: Nose without bleeding, purulent drainage or septal hematoma. . Airway patent. NECK: Trachea midline. No JVD or lymphadenopathy. Supple, nontender, no meningeal signs. CARDIOVASCULAR: Regular rate and rhythm without murmurs, gallops, or rubs. RESPIRATORY: Clear to auscultation. Breath sounds equal bilaterally. No wheezes , rales, or rhonchi. GASTROINTESTINAL: Abdomen soft, tender, nondistended. No hepato-splenomegaly, or palpable masses. No guarding. MUSCULOSKELETAL: Extremities without clubbing, cyanosis, or edema. No joint tenderness, effusion, or edema noted. No calf tenderness. NEUROLOGICAL: Awake and alert. Motor and sensory grossly within normal limits. Normal speech. Pt update on day of discharge No diarrhea, tolerates food. No n/v/d/c. No abd pain. Feels much better and wants to ho home. Discussed with hem/onc cl;eared for DC, to follow up as OP. Hospital Course 61 Y/o with a history of DM type 1, and ocular melanoma with metastases presented to the ED with complaints of abdominal pain and diarrhea since Sunday. Patient with multiple autoimmune diseases Abdominal pain. Improved. Diarrhea, possible colitis related to ipilimumab. Stool studies negative. Pancreatic atrophy. Patient has been on Creon. 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 Accu checks, BS uncontrolled 2/2 steroids. Will add detemir 5 U BID. Monitor and adjust as indicated. Pancytopenia secondary to immunotherapy Images reviewed: Abdominal CT shows Nonspecific diffuse gallbladder distention with pericholecystic fluid. This finding could be further evaluated with ultrasound. Diffuse hepatic hypodensity indicating hepatic steatosis, new compared to the prior study. Multiple scattered soft tissue nodules in the anterior abdominal wall, left gluteal region, and right sided retroperitoneum as well as left lower lung pulmonary nodule consistent with the patient's history of metastatic melanoma. Some of these areas are larger and some are smaller when compared to the prior study of July 2015. Diffusely distended colon with multiple air-fluid levels suggesting ileus. New atrophy of the pancreatic tail. Abnormal imaging of GB with nonspecific diffuse gallbladder distention with pericholecystic fluid on CT Scan. GB Ultrasound (08/09/16) reviewed Cholelithiasis and gallbladder wall thickening with negative sonographic Chu sign. In the appropriate clinical setting cholecystitis can have this appearance. 2. Hepatomegaly and hepatic steatosis. No nausea/RUQ tenderness/Chu's sign. LFT stable Consult gen surgery for evaluation patient with abdominal pain. Plan to advance diet as tolerated if no surgical intervention. Discussed with Dr Escobedo hem/onc , poss DC 1-2 days( Monitor until Sunday) patient still with diarrhea and is incontinent. Monitor closely VS BS uncontrolled 2/2 steroids, diet is advanced. Increased detemir to 5 U BID . Monitor and adjust insulin as indicated. BS is better controlled. Remicade and Prednisone per Dr. Escobedo Monitor stool output Pain management with IV morphine IVF hydration DC Cefepime as recommended by Dr. Escobedo. Tolerates diet, on healthy hear/1800 ADA diet Antiemetics as needed Ocular melanoma, chronic-Consult Dr. Escobedo, following Consult GI and hem/onc following DVT prophylaxis: scds Improved, no diarrhea, tolerates diet, no pain. BS better controlled. Cleared by consultants for DC. DC home in fairly stable condition to follow up as OP with PCP and consultants. Pt Condition on Discharge: Stable Discharge Disposition: Discharge Home Discharge Time: <= 30 minutes Discharge Instructions DIET: Follow Instructions for: Heart Healthy Diet, Diabetic Diet Activities you can perform: Regular-No Restrictions Follow up Referrals: Endocrinology - 3-5 Days Gastroenterology - 2 Weeks Oncology - 1 Week PCP Follow-up - 3-5 Days Surgical - 1 Week New Medications: Prednisone (Prednisone) 20 Mg Tab 40 MG PO DAILY inflammation Days 10 Ref 0 TAB Changed Medications: Insulin Detemir Inj (Levemir Flextouch Pen Inj) 300 unit/3 ML Pen 5 UNITS SQ BID Blood Sugar Management #30 Ref 0 PEN (Changed from: HS) Continued Medications: Amlodipine (Norvasc) 5 Mg Tab 5 MG PO DAILY PRN ELEVATED BP #30 Ref 0 TAB Ergocalciferol (Drisdol) 50,000 Unit Cap 38234 UNITS PO WEEKLY ON MONDAYS Nutritional Supplement #30 Ref 0 CAP Insulin Glulisine Inj (Apidra Inj) 1,000 Unit/10 Ml Vial Unknown Dose SQ ACHS SLIDING SCALE Blood Sugar Management Ref 0 VIAL Lorazepam (Lorazepam) 0.5 Mg Tab 0.5 MG PO Q4H PRN ANXIETY Ref 0 TAB Naproxen Sodium (Aleve) 220 Mg Tab 440 MG PO DAILY PRN FEVER Ref 0 TAB Pancrelipase (Creon) 12,000-38,000-60,000 Units Cap 1 CAP PO TIDAC Digestive Aid #90 Ref 0 CAP Pantoprazole (Pantoprazole) 40 Mg Tab 40 MG PO DAILY Reflux #30 Ref 0 TAB Discontinued Medications: Hydrocortisone (Cortef) 10 Mg Tab 10 MG PO DAILY IN THE MORNING Take with food to decresae GI upset #30 Ref 0 TAB Hydrocortisone (Cortef) 5 Mg Tab 5 MG PO HS Take with food to decrease GI upset #30 Ref 0 TAB Nyla Spencer MD Aug 11, 2016 08:17
[2016-08-11] MEDS: methylPREDNISolone SOD SUCC 40 MG/1 ML VIAL IV PUSH SCH ×2 (08:32→20:23)
[2016-08-11] MEDS: MORPHINE SULFATE 4 MG/ML INJ IV PRN ×2 (08:33→12:07)
[2016-08-11] MEDS: SODIUM CHLORIDE IV FLUSH SCH ×2 (09:00→20:23)
--- NOTE | 2016-08-11 09:08 | PD.ONC.PN ---
Subjective Subjective Remarks Afebrile overnight. Patient reports she continues to have copious amounts of diarrhea during the night, even diarrheal incontinence. During the day, "when I get the medicine," she states the diarrhea is minimal. She reports occasional abdominal cramping, but no blood in stool. No new blurred vision or skin changes. Objective Data Date Time Temp Pulse Resp B/P Pulse Ox O2 Delivery O2 Flow Rate FiO2 08/11/16 04:00 97.7 72 17 129/78 99 08/11/16 00:00 96.6 66 17 111/68 99 08/10/16 20:00 96.3 83 18 111/69 99 08/10/16 16:00 96.0 82 18 125/78 100 08/10/16 12:00 96.3 84 18 114/63 100 Result Diagram: 08/09/16 0420 08/09/16 0420 Culture Results Microbiology Date/Time Procedure Status Source Growth 08/08/16 21:00 Aerobic Blood Culture - Preliminary Resulted Blood Peripheral NO GROWTH IN 1 DAY 08/08/16 21:00 Anaerobic Blood Culture - Preliminary Resulted Blood Peripheral NO GROWTH IN 1 DAY 08/08/16 21:00 Aerobic Blood Culture - Preliminary Resulted Blood Peripheral NO GROWTH IN 1 DAY 08/08/16 21:00 Anaerobic Blood Culture - Preliminary Resulted Blood Peripheral NO GROWTH IN 1 DAY 08/09/16 14:55 - Final Complete Stool Stool NO ENTERIC PATHOGENS DETECTED BY PCR... 08/09/16 14:55 Cryptosporidium Exam Resulted Stool Stool Pending 08/09/16 14:55 Stool Pus (FIDEL) - Final Resulted Stool Stool FEW WBC'S 08/09/16 14:55 Giardia Antigen (FIDEL) Resulted Stool Stool Pending Administered Medications Medications (Trade) Dose Ordered Sig/Thierno Route PRN Reason Start Time Stop Time Status Last Admin Dose Admin Morphine Sulfate (Morphine Inj) 3 mg Q3H PRN IV Pain 6-10 08/08/16 22:30 08/11/16 08:33 Methylprednisolone Sodium Succinate (SoluMEDROL INJ) 40 mg Q12HR IV PUSH 08/09/16 09:00 08/11/16 08:32 IV Flush 2 ml 2 ml BID IV FLUSH 08/09/16 21:00 08/10/16 19:33 Sodium Chloride (NS 1000 ml Inj) 1,000 ml @ 84 mls/hr [id number] IV 08/09/16 12:00 08/10/16 23:45 Zolpidem Tartrate (Ambien) 5 mg HS PRN PO insomnia 08/10/16 19:45 08/10/16 21:03 Objective Remarks GENERAL: Middle aged female, sitting up in bed in nad. SKIN: Warm and dry. HEAD: Normocephalic. EYES: No injection or drainage. NECK: Supple, trachea midline. CARDIOVASCULAR: Regular rate and rhythm RESPIRATORY: Breath sounds equal bilaterally. No accessory muscle use. GASTROINTESTINAL: Abdomen soft, mildly tender throughout, nondistended. EXTREMITIES: No cyanosis NEUROLOGICAL: awake and alert, normal speech, independently ambulatory about her room. Assessment/Plan Assessment 61y/o female with metastatic ocular melanoma, s/p ipilimumab, presented with severe diarrhea. Plan 1. would continue prednisone and insulin. Once diarrhea more manageable (i.e not having incontinence), she could be discharged on prednisone. But for now would continue the solu-medrol and supportive care. this was discussed with the patient at length. 2. we appreciate all the help from the hospitalists and GI Attending Statement The exam, history, and the medical decision-making described in the above note were completed with the assistance of the mid-level provider. I reviewed and agree with the findings presented. I attest that I had a [id number] encounter with the patient on the same day, and personally performed and documented my assessment and findings in the medical record. Abdomen mostly soft and with minimal tenderness. The immune response from the ipilimumab appears to be directed against the bowel and no other organs. Will continue steroids and begin to taper once she is significantly better. It is hard to know how long this will take. Marley Escobar Aug 11, 2016 09:08 Terrell Escobedo MD Aug 11, 2016 18:19
[2016-08-11 09:09] LABS: AUTOMATED NEUTROPHIL # 11.7 TH/MM3 (1.8-7.7); BASOPHIL % 0.2 % (0.0-2.0); HEMATOCRIT 34.9 % (35.0-46.0); LYMPHOCYTE # 1.4 TH/MM3 (1.0-4.8); MEAN CELL VOLUME 92.1 FL (80.0-100.0); MEAN CORPUSCULAR HEMOGLOBIN 30.1 PG (27.0-34.0); MEAN CORPUSCULAR HGB CONC 32.7 % (32.0-36.0); MONO % 7.3 % (0.0-8.0); NEUT % 82.5 % (16.0-70.0); PLATELET COUNT 204 TH/MM3 (150-450); RED BLOOD COUNT 3.79 MIL/MM3 (4.00-5.30); RED CELL DISTRIBUTION WIDTH 12.9 % (11.6-17.2); WHITE BLOOD COUNT 14.2 TH/MM3 (4.0-11.0)
[2016-08-11 09:10] LABS: HEMO FLAGS AUTO DIFF
[2016-08-11 09:40] LABS: ALKALINE PHOSPHATASE 153 U/L (45-117); ALT (GPT) 47 U/L (10-53); ANION GAP 10 MEQ/L (5-15); AST (GOT) 33 U/L (15-37); BICARBONATE 18.7 MEQ/L (21.0-32.0); BLOOD UREA NITROGEN 11 MG/DL (7-18); CHLORIDE 112 MEQ/L (98-107); GLOMERULAR FILTRATION RATE 64 ML/MIN (>89); POTASSIUM 3.6 MEQ/L (3.5-5.1); SODIUM (NA) 141 MEQ/L (136-145); TOTAL BILIRUBIN ADULT 0.6 MG/DL (0.2-1.0)
[2016-08-11 09:41] LABS: BANDS 24 % (0-6); MYELOCYTES 1 % (0-0); NEUTROPHIL # MANUAL DIFF 11.5 TH/MM3 (1.8-7.7); POLYS (SEG NEUTROPHILS) 56 % (16-70); WBC DIFF SAMPLE 100
[2016-08-11 09:43] LABS: PLATELET ESTIMATE SMEAR NORMAL (NORMAL); PLATELET MORPHOLOGY NORMAL (NORMAL); SCAN/DIFF FINAL DIFF MANUAL; TOXIC GRANULATION 1+ (NORMAL)
--- NOTE | 2016-08-11 09:48 | HHI.GIFU ---
Subjective Remarks Resting in bed. States that she had one episode of incontinence overnight and 2 episodes of diarrhea this am so far. Has constant lower abdominal cramping/ dull ache similar to "menstrual cramps" that varies in intensity. (Ana Cristina Kahn) Objective Vitals I&O Vital Signs Date Time Temp Pulse Resp B/P Pulse Ox O2 Delivery O2 Flow Rate FiO2 08/11/16 04:00 97.7 72 17 129/78 99 08/11/16 00:00 96.6 66 17 111/68 99 08/10/16 20:00 96.3 83 18 111/69 99 08/10/16 16:00 96.0 82 18 125/78 100 08/10/16 12:00 96.3 84 18 114/63 100 I/O 08/10/16 08/10/16 08/10/16 08/11/16 08/11/16 08/11/16 07:00 15:00 23:00 07:00 15:00 23:00 Intake Total 1440 ml 2345 ml 1500 ml Balance 1440 ml 2345 ml 1500 ml Intake Oral 1440 ml IV Total 2345 ml 1500 ml # Voids 2 8 2 Laboratory Laboratory Tests Test 08/11/16 08:30 White Blood Count 14.2 Red Blood Count 3.79 Hemoglobin 11.4 Hematocrit 34.9 Mean Corpuscular Volume 92.1 Mean Corpuscular Hemoglobin 30.1 Mean Corpuscular Hemoglobin 32.7 Concent Red Cell Distribution Width 12.9 Platelet Count 204 Mean Platelet Volume 9.0 Neutrophils (%) (Auto) 82.5 Lymphocytes (%) (Auto) 10.0 Monocytes (%) (Auto) 7.3 Eosinophils (%) (Auto) 0.0 Basophils (%) (Auto) 0.2 Neutrophils # (Auto) 11.7 Lymphocytes # (Auto) 1.4 Monocytes # (Auto) 1.0 Eosinophils # (Auto) 0.0 Basophils # (Auto) 0.0 CBC Comment AUTO DIFF Date/Time Procedure Status Source Growth 08/09/16 14:55 Cryptosporidium Exam Resulted Stool Stool Pending 08/09/16 14:55 Stool Pus (FIDEL) - Final Resulted Stool Stool FEW WBC'S 08/09/16 14:55 Giardia Antigen (FIDEL) Resulted Stool Stool Pending 08/09/16 14:55 - Final Complete Stool Stool NO ENTERIC PATHOGENS DETECTED BY PCR... 08/08/16 21:00 Aerobic Blood Culture - Preliminary Resulted Blood Peripheral NO GROWTH IN 1 DAY 08/08/16 21:00 Anaerobic Blood Culture - Preliminary Resulted Blood Peripheral NO GROWTH IN 1 DAY Imaging Last Impressions Abdomen X-Ray 08/10/16 0600 Signed Impressions: Service Date/Time: July 06:48 - CONCLUSION: Nonspecific bowel gas pattern. Fareed Azul MD FACR Gall Bladder Ultrasound 08/09/16 0000 Signed Impressions: Service Date/Time: Tuesday, August 09, 2016 20:02 - CONCLUSION: 1. Cholelithiasis and gallbladder wall thickening with negative sonographic Chu sign. In the appropriate clinical setting cholecystitis can have this appearance. 2. Hepatomegaly and hepatic steatosis. Jeanmarie Rich MD Abdomen/Pelvis CT 08/08/162004 Signed Impressions: Service Date/Time: Monday, August 08, 2016 23:34 - CONCLUSION: 1. Nonspecific diffuse gallbladder distention with pericholecystic fluid. This finding could be further evaluated with ultrasound. 2. Diffuse hepatic hypodensity indicating hepatic steatosis, new compared to the prior study. 3. Multiple scattered soft tissue nodules in the anterior abdominal wall, left gluteal region, and right sided retroperitoneum as well as left lower lung pulmonary nodule consistent with the patient's history of metastatic melanoma. Some of these areas are larger and some are smaller when compared to the prior study of July 2015. 4. Diffusely distended colon with multiple air-fluid levels suggesting ileus. 5. New atrophy of the pancreatic tail. Hunter Navarrete MD Physical Exam HEENT: Normocephalic; atraumatic; no jaundice. CHEST: CTA CARDIAC: RRR ABDOMEN: Soft, nondistended, mild lower abdominal tenderness; no hepatosplenomegaly; bowel sounds are present in all four quadrants. EXTREMITIES: No clubbing, cyanosis, or edema. SKIN: Normal; no rash; no jaundice. IT SUPPORT CONSULTANT: No focal deficits; alert and oriented times three. (Ana Cristina Kahn) Assessment and Plan Plan ASSESSMENT: - Diarrhea, possible colitis related to ipilimumab. Abdomen/Pelvis CT (08/08/16 )----> 1. Nonspecific diffuse gallbladder distention with pericholecystic fluid. This finding could be further evaluated with ultrasound. 2. Diffuse hepatic hypodensity indicating hepatic steatosis, new compared to the prior study. 3. Multiple scattered soft tissue nodules in the anterior abdominal wall, left gluteal region, and right sided retroperitoneum as well as left lower lung pulmonary nodule consistent with the patient's history of metastatic melanoma. Some of these areas are larger and some are smaller when compared to the prior study of July 2015. 4. Diffusely distended colon with multiple air-fluid levels suggesting ileus. 5. New atrophy of the pancreatic tail. CDiff negative. Stool few WBC. Giardia pending. No enteric pathogens. Pt was started on Solumedrol and had Remicade on 08/09. She had one episode of incontinence overnight and had 2 loose stools this am. Mild to mod. lower abdominal cramping/dull ache similar to "menstrual cramps." Plan is to continue IV Solumedrol until diarrhea controlled without incontinence and then transition to po steroids. - Abnormal imaging of GB with nonspecific diffuse gallbladder distention with pericholecystic fluid on CT Scan. GB Ultrasound (08/09/16)--> Cholelithiasis and gallbladder wall thickening with negative sonographic Chu sign. In the appropriate clinical setting cholecystitis can have this appearance. 2. Hepatomegaly and hepatic steatosis. No nausea/ RUQ tenderness/Chu's sign. CMP pending. - Leukocytosis. Pt now with wbc of 14.2, although she has been on steroids and this may be related to this as she has remained afebrile. - Pancreatic atrophy. Patient has been on Creon for this - Elevated LFTs/fatty liver, could be secondary to meds, she does drinks 1 c wine daily. Stable. CMP pending. 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 Escobedo on the case, immunotherapy 2 weeks ago - DM type 1 per attending Plan: - NOMI - Cont. Solumedrol, transition to po steroids once diarrhea improves - S/P Remicade (08/09) - Monitor stool output - Supportive care - Patient seen and examined by Dr. Peters and myself and this note is written on his behalf. (Ana Cristina Kahn) Physician Comments Seen and examined with SHAVON, doing better. No bleeding, No infections seen. ( Baron Peters MD) Ana Cristina Kahn Aug 11, 2016 09:48 Baron Peters MD Aug 11, 2016 12:33
[2016-08-11 12:00] VITALS: BP 122/64; PULSE 70; RESP 18; TEMP 97.6; O2SAT 98
[2016-08-11] MEDS: SODIUM CHLOR 0.9% 1000 ML INJ 1,000 ML IV SCH ×2 (12:04→20:29)
--- NOTE | 2016-08-11 12:11 | PD.CAR.PN ---
CVT Progress Note Subjective/Hospital Course: Patient with abdominal pain and complex previous medical history including metastatic melanoma Patient is known to Dr. Galvez and his established patient Discussed with Monserrat the nurse practitioner and and she will take over the consult Thanks Davonte Objective: Vital Signs Date Time Temp Pulse Resp B/P Pulse Ox O2 Delivery O2 Flow Rate FiO2 08/11/16 04:00 97.7 72 17 129/78 99 08/11/16 00:00 96.6 66 17 111/68 99 08/10/16 20:00 96.3 83 18 111/69 99 08/10/16 16:00 96.0 82 18 125/78 100 Labs: Laboratory Tests Test 08/11/16 08:30 White Blood Count 14.2 TH/MM3 (4.0-11.0) Red Blood Count 3.79 MIL/MM3 (4.00-5.30) Hemoglobin 11.4 GM/DL (11.6-15.3) Hematocrit 34.9 % (35.0-46.0) Mean Corpuscular Volume 92.1 FL (80.0-100.0) Mean Corpuscular Hemoglobin 30.1 PG (27.0-34.0) Mean Corpuscular Hemoglobin 32.7 % Concent (32.0-36.0) Red Cell Distribution Width 12.9 % (11.6-17.2) Platelet Count 204 TH/MM3 (150-450) Mean Platelet Volume 9.0 FL (7.0-11.0) Neutrophils (%) (Auto) 82.5 % (16.0-70.0) Lymphocytes (%) (Auto) 10.0 % (9.0-44.0) Monocytes (%) (Auto) 7.3 % (0.0-8.0) Eosinophils (%) (Auto) 0.0 % (0.0-4.0) Basophils (%) (Auto) 0.2 % (0.0-2.0) Neutrophils # (Auto) 11.7 TH/MM3 (1.8-7.7) Lymphocytes # (Auto) 1.4 TH/MM3 (1.0-4.8) Monocytes # (Auto) 1.0 TH/MM3 (0-0.9) Eosinophils # (Auto) 0.0 TH/MM3 (0-0.4) Basophils # (Auto) 0.0 TH/MM3 (0-0.2) CBC Comment AUTO DIFF Differential Total Cells 100 Counted Neutrophils % (Manual) 56 % (16-70) Band Neutrophils % 24 % (0-6) Lymphocytes % 15 % (9-44) Monocytes % 4 % (0-8) Neutrophils # (Manual) 11.5 TH/MM3 (1.8-7.7) Myelocytes 1 % (0-0) Differential Comment FINAL DIFF MANUAL Toxic Granulation 1+ (NORMAL) Platelet Estimate NORMAL (NORMAL) Platelet Morphology Comment NORMAL (NORMAL) Red Cell Morphology Comment NORMAL (NORMAL) Sodium Level 141 MEQ/L (136-145) Potassium Level 3.6 MEQ/L (3.5-5.1) Chloride Level 112 MEQ/L (98-107) Carbon Dioxide Level 18.7 MEQ/L (21.0-32.0) Anion Gap 10 MEQ/L (5-15) Blood Urea Nitrogen 11 MG/DL (7-18) Creatinine 0.90 MG/DL (0.50-1.00) Estimat Glomerular Filtration 64 ML/MIN (>89) Rate Random Glucose 281 MG/DL (74-106) Calcium Level 7.8 MG/DL (8.5-10.1) Total Bilirubin 0.6 MG/DL (0.2-1.0) Aspartate Amino Transf 33 U/L (15-37) (AST/SGOT) Alanine Aminotransferase 47 U/L (10-53) (ALT/SGPT) Alkaline Phosphatase 153 U/L (45-117) Total Protein 5.5 GM/DL (6.4-8.2) Albumin 2.5 GM/DL (3.4-5.0) Result Diagram: 08/11/1682908/11/16829 Jasbir Rebollar MD Aug 11, 2016 12:11
[2016-08-11 16:00] VITALS: BP 134/69; PULSE 64; RESP 18; TEMP 97.6; O2SAT 99
--- NOTE | 2016-08-11 16:46 | PD.CONS ---
cc: Farooq Sanchez MD HPI Service General Surgery Consult Requested By Ana Cristina SANDS Reason for Consult Eval for cholelithiasis Primary Care Physician Terrell Escobedo MD History of Present Illness This is a 61 year old female with a past medical history of DM type1 and ocular melanoma on immunotherapy. She developed abdominal pain with nausea and diarrhea approximately 2 days after eating port ribs. The patient has since had resolution of her abdominal pain but increasing amount of diarrhea. This is a well-known established patient of Dr. Handley. A General Surgery consultation has been requested to evaluate for cholecystitis. Review of Systems Constitutional: DENIES: Weight gain, Weight loss Endocrine: DENIES: Polydipsia, Polyuria, Polyphagia Eyes: DENIES: Diplopia, Eye inflammation Ears, nose, mouth, throat: DENIES: Tinnitus, Vertigo Respiratory: DENIES: Apneas Cardiovascular: DENIES: Chest pain Gastrointestinal: COMPLAINS OF: Abdominal pain, Diarrhea, Nausea, Vomiting, DENIES: Constipation Genitourinary: DENIES: Urinary frequency, Urinary incontinence Musculoskeletal: DENIES: Joint pain Integumentary: DENIES: Abnormal pigmentation Hematologic/lymphatic: DENIES: Bruising Immunologic/allergic: DENIES: Eczema Neurologic: DENIES: Headache Psychiatric: DENIES: Confusion, Mood changes Past Family Social History Past Medical History Ocular melanoma Past Surgical History tonsillectomy Removal of melanoma (back) Tubal ligation Reported Medications See chart but of note she is on immunotherapy Allergies: Coded Allergies: Penicillin (Verified Allergy, Severe, Anaphylaxis, 08/08/16) Active Ordered Medications Current Medications Medications (Trade) Dose Ordered Sig/Thierno Route Start Time Stop Time Status Last Admin (Morphine Inj) 2 mg Q3H PRN IV 08/08/16 22:30 (Morphine Inj) 3 mg Q3H PRN IV 08/08/16 22:30 08/11/16 12:07 (Narcan Inj) 0.4 mg UNSCH PRN IV 08/08/16 22:30 (SoluMEDROL INJ) 40 mg Q12HR IV PUSH 08/09/16 09:00 08/11/16 08:32 (NS Flush) 2 ml BID IV FLUSH 08/09/16 21:00 08/11/16 09:00 (NS Flush) 2 ml UNSCH PRN IV FLUSH 08/09/16 11:15 (D50w (Vial) Inj) 25 ml UNSCH PRN IV PUSH 08/09/16 12:00 Glucagon 1 mg 1 mg UNSCH PRN OTHER 08/09/16 12:00 Sodium Chloride 1,000 ml @ 84 mls/hr [id number] IV 08/09/16 12:00 08/11/16 12:04 (NS 500 ml Inj) 500 ml @ 0 mls/hr BOLUS PRN IV 08/09/16 18:00 (Ambien) 5 mg HS PRN PO 08/10/16 19:45 08/10/16 21:03 Family History Non contributory Social History Denies Smoking Occasional use of ETOH Denies illicit drug use Physical Exam Vital Signs Vital Signs Date Time Temp Pulse Resp B/P Pulse Ox O2 Delivery O2 Flow Rate FiO2 08/11/16 12:00 97.6 70 18 122/64 98 08/11/16 08:00 98.0 79 18 125/76 98 08/11/16 04:00 97.7 72 17 129/78 99 08/11/16 00:00 96.6 66 17 111/68 99 08/10/16 20:00 96.3 83 18 111/69 99 Physical Exam GENERAL: Pleasant 61 year old female resting in bed in no acute distress. SKIN: Warm and dry. HEAD: Atraumatic. Normocephalic. EYES: Pupils equal and round. No scleral icterus. No injection or drainage. ENT: No nasal bleeding or discharge. Mucous membranes pink and moist. NECK: Trachea midline. CARDIOVASCULAR: Regular rate and rhythm. RESPIRATORY: No accessory muscle use. Clear to auscultation. Breath sounds equal bilaterally. GASTROINTESTINAL: Abdomen soft, non-tender, nondistended. MUSCULOSKELETAL: Extremities without clubbing, cyanosis, or edema. No obvious deformities. NEUROLOGICAL: Awake and alert. No obvious cranial nerve deficits. Motor grossly within normal limits. Five out of 5 muscle strength in the arms and legs. Normal speech. PSYCHIATRIC: Appropriate mood and affect; insight and judgment normal. Laboratory Laboratory Tests Test 08/11/16 08:30 White Blood Count 14.2 Red Blood Count 3.79 Hemoglobin 11.4 Hematocrit 34.9 Mean Corpuscular Volume 92.1 Mean Corpuscular Hemoglobin 30.1 Mean Corpuscular Hemoglobin 32.7 Concent Red Cell Distribution Width 12.9 Platelet Count 204 Mean Platelet Volume 9.0 Neutrophils (%) (Auto) 82.5 Lymphocytes (%) (Auto) 10.0 Monocytes (%) (Auto) 7.3 Eosinophils (%) (Auto) 0.0 Basophils (%) (Auto) 0.2 Neutrophils # (Auto) 11.7 Lymphocytes # (Auto) 1.4 Monocytes # (Auto) 1.0 Eosinophils # (Auto) 0.0 Basophils # (Auto) 0.0 CBC Comment AUTO DIFF Differential Total Cells 100 Counted Neutrophils % (Manual) 56 Band Neutrophils % 24 Lymphocytes % 15 Monocytes % 4 Neutrophils # (Manual) 11.5 Myelocytes 1 Differential Comment FINAL DIFF MANUAL Toxic Granulation 1+ Platelet Estimate NORMAL Platelet Morphology Comment NORMAL Red Cell Morphology Comment NORMAL Sodium Level 141 Potassium Level 3.6 Chloride Level 112 Carbon Dioxide Level 18.7 Anion Gap 10 Blood Urea Nitrogen 11 Creatinine 0.90 Estimat Glomerular Filtration 64 Rate Random Glucose 281 Calcium Level 7.8 Total Bilirubin 0.6 Aspartate Amino Transf 33 (AST/SGOT) Alanine Aminotransferase 47 (ALT/SGPT) Alkaline Phosphatase 153 Total Protein 5.5 Albumin 2.5 Date/Time Procedure Status Source Growth 08/09/16 14:55 Cryptosporidium Exam Resulted Stool Stool Pending 08/09/16 14:55 Stool Pus (FIDEL) - Final Resulted Stool Stool FEW WBC'S 08/09/16 14:55 Giardia Antigen (FIDEL) Resulted Stool Stool Pending 08/09/16 14:55 - Final Complete Stool Stool NO ENTERIC PATHOGENS DETECTED BY PCR... 08/08/16 21:00 Aerobic Blood Culture - Preliminary Resulted Blood Peripheral NO GROWTH IN 2 DAYS 08/08/16 21:00 Anaerobic Blood Culture - Preliminary Resulted Blood Peripheral NO GROWTH IN 2 DAYS Result Diagram: 08/11/16 0830 08/11/16 0830 Imaging Last 48 hours Impressions Abdomen X-Ray 08/10/16 0600 Signed Impressions: Service Date/Time: July 06:48 - CONCLUSION: Nonspecific bowel gas pattern. Fareed Azul MD FACR Assessment and Plan Assessment and Plan 61 year old female with ocular melanoma with metastatic disease (according to patient) with abdominal pain; questionable gallbladder etiology -CT and US reviewed -Clinical the patient's abdominal exam is benign -WBC normal -Advance diet to regular diet -No indication for surgery at this point -Dr. Lockwood will see tomorrow I certify and attest that I personally examined this patient with Lazaro who documented our visit in the EMR and entered orders under my direct supervision. I reviewed the care plan with the nursing staff and family if present. FAROOQ SANCHEZ MD FACS Discussed Condition With Dr. Sanchez . Becca WillisJaye Aug 11, 2016 16:46 Farooq Sanchez MD Aug 16, 2016 14:35
--- NOTE | 2016-08-11 17:53 | HHI.PR ---
Subjective Remarks The patient was seen earlier today. The patient feels improved. No n/v. She still has diarrhea 4 episodes during the night and one episode in the morning. No blood in the stool. However she still has abdominal pain. Gen surgery consulted for evaluation. Objective Vitals Vital Signs Date Time Temp Pulse Resp B/P Pulse Ox O2 Delivery O2 Flow Rate FiO2 08/11/16 16:00 97.6 64 18 134/69 99 08/11/16 12:00 97.6 70 18 122/64 98 08/11/16 08:00 98.0 79 18 125/76 98 08/11/16 04:00 97.7 72 17 129/78 99 08/11/16 00:00 96.6 66 17 111/68 99 08/10/16 20:00 96.3 83 18 111/69 99 I/O 08/10/16 08/10/16 08/10/16 08/11/16 08/11/16 08/11/16 07:00 15:00 23:00 07:00 15:00 23:00 Intake Total 1440 ml 2345 ml 1500 ml 551 ml Balance 1440 ml 2345 ml 1500 ml 551 ml Intake Oral 1440 ml IV Total 2345 ml 1500 ml 551 ml # Voids 2 8 2 Result Diagram: 08/11/16 0830 08/11/16 0830 Imaging Last Impressions Abdomen X-Ray 08/10/16 0600 Signed Impressions: Service Date/Time: July 06:48 - CONCLUSION: Nonspecific bowel gas pattern. Fareed Azul MD FACR Gall Bladder Ultrasound 08/09/16 0000 Signed Impressions: Service Date/Time: Tuesday, August 09, 2016 20:02 - CONCLUSION: 1. Cholelithiasis and gallbladder wall thickening with negative sonographic Chu sign. In the appropriate clinical setting cholecystitis can have this appearance. 2. Hepatomegaly and hepatic steatosis. Jeanmarie Rich MD Abdomen/Pelvis CT 08/08/162004 Signed Impressions: Service Date/Time: Monday, August 08, 2016 23:34 - CONCLUSION: 1. Nonspecific diffuse gallbladder distention with pericholecystic fluid. This finding could be further evaluated with ultrasound. 2. Diffuse hepatic hypodensity indicating hepatic steatosis, new compared to the prior study. 3. Multiple scattered soft tissue nodules in the anterior abdominal wall, left gluteal region, and right sided retroperitoneum as well as left lower lung pulmonary nodule consistent with the patient's history of metastatic melanoma. Some of these areas are larger and some are smaller when compared to the prior study of July 2015. 4. Diffusely distended colon with multiple air-fluid levels suggesting ileus. 5. New atrophy of the pancreatic tail. Hunter Navarrete MD Objective Remarks GENERAL: This is a well-nourished, well-developed patient, in no apparent distress. SKIN: No rashes, ecchymoses or lesions. Cool and dry. HEAD: Atraumatic. Normocephalic. No temporal or scalp tenderness. EYES: Pupils equal round and reactive. No injection or drainage. ENT: Nose without bleeding, purulent drainage or septal hematoma. . Airway patent. NECK: Trachea midline. No JVD or lymphadenopathy. Supple, nontender, no meningeal signs. CARDIOVASCULAR: Regular rate and rhythm without murmurs, gallops, or rubs. RESPIRATORY: Clear to auscultation. Breath sounds equal bilaterally. No wheezes , rales, or rhonchi. GASTROINTESTINAL: Abdomen soft, tender, nondistended. No hepato-splenomegaly, or palpable masses. No guarding. MUSCULOSKELETAL: Extremities without clubbing, cyanosis, or edema. No joint tenderness, effusion, or edema noted. No calf tenderness. NEUROLOGICAL: Awake and alert. Motor and sensory grossly within normal limits. Normal speech. 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 Patient with multiple autoimmune diseases Abdominal pain. Improved. Diarrhea, possible colitis related to ipilimumab. Pancreatic atrophy. Patient has been on Creon. 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 Accuchecks, resume long actiong and ISS. Pancytopenia secondary to immunotherapy Images reviewed: Abdominal CT shows Nonspecific diffuse gallbladder distention with pericholecystic fluid. This finding could be further evaluated with ultrasound. Diffuse hepatic hypodensity indicating hepatic steatosis, new compared to the prior study. Multiple scattered soft tissue nodules in the anterior abdominal wall, left gluteal region, and right sided retroperitoneum as well as left lower lung pulmonary nodule consistent with the patient's history of metastatic melanoma. Some of these areas are larger and some are smaller when compared to the prior study of July 2015. Diffusely distended colon with multiple air-fluid levels suggesting ileus. New atrophy of the pancreatic tail. Abnormal imaging of GB with nonspecific diffuse gallbladder distention with pericholecystic fluid on CT Scan. GB Ultrasound (08/09/16) reviewed Cholelithiasis and gallbladder wall thickening with negative sonographic Chu sign. In the appropriate clinical setting cholecystitis can have this appearance. 2. Hepatomegaly and hepatic steatosis. No nausea/RUQ tenderness/Chu's sign. LFT stable Consult gen surgery for evaluation patient with abdominal pain. Plan to advance diet as tolerated if no surgical intervention. Discussed with Dr Escobedo hem/onc , poss DC 1-2 days Remicade and Prednisone per Dr. Escobedo Monitor stool output Pain management with IV morphine IVF hydration DC Cefepime as recommended by Dr. Escobedo. Clear liquids, advance as tolerated Antiemetics as needed Ocular melanoma, chronic-Consult Dr. Escobedo, following Consult GI and hem/onc following DVT prophylaxis: scds Discussed Condition With Patient and nurse DC plan: Poss DC in 1-2 days. If no plan for surgery, advance diet as tolerated and poss DC in 1-2 days. Nyla Spencer MD Aug 11, 2016 17:53
[2016-08-11 20:00] VITALS: BP 134/75; PULSE 67; RESP 17; TEMP 96; O2SAT 99
[2016-08-11] MEDS: ZOLPIDEM TARTRATE 5 MG TAB PO PRN (20:29)
[2016-08-12] VITALS: BP 143/84; PULSE 59; RESP 18; TEMP 97.4; O2SAT 99
[2016-08-12 04:00] VITALS: BP 128/66; PULSE 54; RESP 22; TEMP 96.4; O2SAT 98
[2016-08-12] MEDS: INSULIN ASPART SUPPLEMENTAL SCALE SQ SCH ×4 (07:00→20:49)
[2016-08-12] MEDS: SODIUM CHLORIDE IV FLUSH SCH ×2 (07:58→20:51)
[2016-08-12] MEDS: methylPREDNISolone SOD SUCC 40 MG/1 ML VIAL IV PUSH SCH (07:58)
[2016-08-12 08:00] VITALS: BP 139/75; PULSE 60; RESP 16; TEMP 97.7; O2SAT 94
--- NOTE | 2016-08-12 08:48 | HHI.PR ---
Subjective Remarks BS uncontrolled 2/2 steroids. Will add detemir 5 U BID. Monitor and adjust Patient with profuse diarrhea, she is incontinent, has dippers on. No fever or chills. Stool studies are negative. Objective Vitals Vital Signs Date Time Temp Pulse Resp B/P Pulse Ox O2 Delivery O2 Flow Rate FiO2 08/12/16 04:00 96.4 54 22 128/66 98 08/12/16 00:00 97.4 59 18 143/84 99 08/11/16 20:00 96.0 67 17 134/75 99 08/11/16 16:00 97.6 64 18 134/69 99 08/11/16 12:00 97.6 70 18 122/64 98 I/O 08/11/16 08/11/16 08/11/16 08/12/16 08/12/16 08/12/16 07:00 15:00 23:00 07:00 15:00 23:00 Intake Total 1500 ml 1680 ml 1031 ml 1625 ml Balance 1500 ml 1680 ml 1031 ml 1625 ml Intake Oral 1680 ml 480 ml 240 ml IV Total 1500 ml 551 ml 1385 ml # Voids 2 4 6 3 Result Diagram: 08/11/16 0830 08/11/16 0830 Imaging Last Impressions Abdomen X-Ray 08/10/16 0600 Signed Impressions: Service Date/Time: July 06:48 - CONCLUSION: Nonspecific bowel gas pattern. Fareed Azul MD FACR Gall Bladder Ultrasound 08/09/16 0000 Signed Impressions: Service Date/Time: Tuesday, August 09, 2016 20:02 - CONCLUSION: 1. Cholelithiasis and gallbladder wall thickening with negative sonographic Chu sign. In the appropriate clinical setting cholecystitis can have this appearance. 2. Hepatomegaly and hepatic steatosis. Jeanmarie Rich MD Abdomen/Pelvis CT 08/08/162004 Signed Impressions: Service Date/Time: Monday, August 08, 2016 23:34 - CONCLUSION: 1. Nonspecific diffuse gallbladder distention with pericholecystic fluid. This finding could be further evaluated with ultrasound. 2. Diffuse hepatic hypodensity indicating hepatic steatosis, new compared to the prior study. 3. Multiple scattered soft tissue nodules in the anterior abdominal wall, left gluteal region, and right sided retroperitoneum as well as left lower lung pulmonary nodule consistent with the patient's history of metastatic melanoma. Some of these areas are larger and some are smaller when compared to the prior study of July 2015. 4. Diffusely distended colon with multiple air-fluid levels suggesting ileus. 5. New atrophy of the pancreatic tail. Hunter Navarrete MD Objective Remarks GENERAL: This is a well-nourished, well-developed patient, in no apparent distress. SKIN: No rashes, ecchymoses or lesions. Cool and dry. HEAD: Atraumatic. Normocephalic. No temporal or scalp tenderness. EYES: Pupils equal round and reactive. No injection or drainage. ENT: Nose without bleeding, purulent drainage or septal hematoma. . Airway patent. NECK: Trachea midline. No JVD or lymphadenopathy. Supple, nontender, no meningeal signs. CARDIOVASCULAR: Regular rate and rhythm without murmurs, gallops, or rubs. RESPIRATORY: Clear to auscultation. Breath sounds equal bilaterally. No wheezes , rales, or rhonchi. GASTROINTESTINAL: Abdomen soft, tender, nondistended. No hepato-splenomegaly, or palpable masses. No guarding. MUSCULOSKELETAL: Extremities without clubbing, cyanosis, or edema. No joint tenderness, effusion, or edema noted. No calf tenderness. NEUROLOGICAL: Awake and alert. Motor and sensory grossly within normal limits. Normal speech. 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 Patient with multiple autoimmune diseases Abdominal pain. Improved. Diarrhea, possible colitis related to ipilimumab. Stool studies negative. Pancreatic atrophy. Patient has been on Creon. 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 Accu checks, BS uncontrolled 2/2 steroids. Will add detemir 5 U BID. Monitor and adjust as indicated. Pancytopenia secondary to immunotherapy Images reviewed: Abdominal CT shows Nonspecific diffuse gallbladder distention with pericholecystic fluid. This finding could be further evaluated with ultrasound. Diffuse hepatic hypodensity indicating hepatic steatosis, new compared to the prior study. Multiple scattered soft tissue nodules in the anterior abdominal wall, left gluteal region, and right sided retroperitoneum as well as left lower lung pulmonary nodule consistent with the patient's history of metastatic melanoma. Some of these areas are larger and some are smaller when compared to the prior study of July 2015. Diffusely distended colon with multiple air-fluid levels suggesting ileus. New atrophy of the pancreatic tail. Abnormal imaging of GB with nonspecific diffuse gallbladder distention with pericholecystic fluid on CT Scan. GB Ultrasound (08/09/16) reviewed Cholelithiasis and gallbladder wall thickening with negative sonographic Chu sign. In the appropriate clinical setting cholecystitis can have this appearance. 2. Hepatomegaly and hepatic steatosis. No nausea/RUQ tenderness/Chu's sign. LFT stable Consult gen surgery for evaluation patient with abdominal pain. Plan to advance diet as tolerated if no surgical intervention. Discussed with Dr Escobedo hem/onc , poss DC 1-2 days( Monitor until Sunday) patient still with diarrhea and is incontinent. Monitor closely VS BS uncontrolled 2/2 steroids, diet is advanced. Will add detemir 5 U BID 08/11. Monitor and adjust insulin as indicated. BS is better controlled. Remicade and Prednisone per Dr. Escobedo Monitor stool output Pain management with IV morphine IVF hydration DC Cefepime as recommended by Dr. Escobedo. Tolerates diet, on healthy hear/1800 ADA diet Antiemetics as needed Ocular melanoma, chronic-Consult Dr. Escobedo, following Consult GI and hem/onc following DVT prophylaxis: scds Discussed Condition With Patient and nurse DC plan: Poss DC tomorrow. Discussed with hem.onc, poss DC tomorrow or Sunday if continues to improve Nyla Spencer MD Aug 12, 2016 08:48
[2016-08-12] MEDS: INSULIN DETEMIR 100 UNITS/ML VIAL SQ SCH ×2 (09:00→20:51)
[2016-08-12] MEDS: SODIUM CHLOR 0.9% 1000 ML INJ 1,000 ML IV SCH ×2 (10:08→23:25)
--- NOTE | 2016-08-12 10:46 | HHI.PR ---
Subjective Subjective Notes feels good this morning, ate breakfast without pain/ problem. Objective Vitals/I&O Vital Signs Date Time Temp Pulse Resp B/P Pulse Ox O2 Delivery O2 Flow Rate FiO2 08/12/16 08:00 97.7 60 16 139/75 94 Labs Date/Time Procedure Status Source Growth 08/09/16 14:55 Cryptosporidium Exam Resulted Stool Stool Pending 08/09/16 14:55 Stool Pus (FIDEL) - Final Resulted Stool Stool FEW WBC'S 08/09/16 14:55 Giardia Antigen (FIDEL) Resulted Stool Stool Pending 08/09/16 14:55 - Final Complete Stool Stool NO ENTERIC PATHOGENS DETECTED BY PCR... 08/08/16 21:00 Aerobic Blood Culture - Preliminary Resulted Blood Peripheral NO GROWTH IN 2 DAYS 08/08/16 21:00 Anaerobic Blood Culture - Preliminary Resulted Blood Peripheral NO GROWTH IN 2 DAYS Radiology Last 48 hours Impressions Abdomen X-Ray 08/10/16 0600 Signed Impressions: Service Date/Time: July 06:48 - CONCLUSION: Nonspecific bowel gas pattern. Fareed Azul MD FACR Abdomen: Non-distended, Non-tender, Other (abdomen soft, non distended, NO RUQ pain to palpation.) A/P Assessment and Plan Gallstones, distended GB on imaging.. No pain with eating. Pt thinks symptoms related to med given for Mets melanoma, and subsequent colitis. She does not want to pursue GB surgery, none indicated at this time. Will be available as needed, please call. Thanks Monty Galvez MD Aug 12, 2016 10:46
--- NOTE | 2016-08-12 10:56 | PD.ONC.PN ---
Subjective Subjective Remarks Afebrile overnight. Patient states she has not had any further diarrhea in 24 hours. She is passing gas. Abdominal cramping gone. She wants to go home. Objective Data Date Time Temp Pulse Resp B/P Pulse Ox O2 Delivery O2 Flow Rate FiO2 08/12/16 08:00 97.7 60 16 139/75 94 08/12/16 04:00 96.4 54 22 128/66 98 08/12/16 00:00 97.4 59 18 143/84 99 08/11/16 20:00 96.0 67 17 134/75 99 08/11/16 16:00 97.6 64 18 134/69 99 08/11/16 12:00 97.6 70 18 122/64 98 08/12/16 08/12/16 08/12/16 07:00 15:00 23:00 Intake Total 1625 ml Balance 1625 ml Result Diagram: 08/11/16 0830 08/11/16 0830 Culture Results Microbiology Date/Time Procedure Status Source Growth 08/09/16 14:55 - Final Complete Stool Stool NO ENTERIC PATHOGENS DETECTED BY PCR... 08/09/16 14:55 Cryptosporidium Exam Resulted Stool Stool Pending 08/09/16 14:55 Stool Pus (FIDEL) - Final Resulted Stool Stool FEW WBC'S 08/09/16 14:55 Giardia Antigen (FIDEL) Resulted Stool Stool Pending Administered Medications Medications (Trade) Dose Ordered Sig/Thierno Route PRN Reason Start Time Stop Time Status Last Admin Dose Admin Morphine Sulfate (Morphine Inj) 3 mg Q3H PRN IV Pain 6-10 08/08/16 22:30 08/11/16 12:07 Methylprednisolone Sodium Succinate (SoluMEDROL INJ) 40 mg Q12HR IV PUSH 08/09/16 09:00 08/12/16 07:58 IV Flush 2 ml 2 ml BID IV FLUSH 08/09/16 21:00 08/11/16 09:00 Sodium Chloride (NS 1000 ml Inj) 1,000 ml @ 84 mls/hr [id number] IV 08/09/16 12:00 08/11/16 20:29 Zolpidem Tartrate (Ambien) 5 mg HS PRN PO insomnia 08/10/16 19:45 08/11/16 20:29 Insulin Detemir (Levemir Inj) 5 units Q12HR SQ 08/12/16 09:00 08/12/16 09:00 Objective Remarks GENERAL: Middle aged female, sitting up in bed in nad. SKIN: Warm and dry. HEAD: Normocephalic. EYES: No scleral icterus. No injection or drainage. NECK: Supple, trachea midline. CARDIOVASCULAR: Regular rate and rhythm RESPIRATORY: Breath sounds equal bilaterally. No accessory muscle use. GASTROINTESTINAL: Abdomen soft, non-tender, nondistended. EXTREMITIES: No cyanosis MUSCULOSKELETAL: Adequate muscle tone. NEUROLOGICAL: No obvious focal deficit. Awake, alert, and oriented x3. Assessment/Plan Assessment 61y/o female with metastatic ocular melanoma, s/p ipilimumab, diarrhea improved now. Plan 1. will transition to Prednisone today. If patient continues to do this well, we could plan on possible discharge tomorrow on prednisone 40mg with close follow up next week. 2. start Protonix while on high dose steroids. Attending Statement diarrhea has resolved. wants to go home switch solumedrol to orednisone. if remains stable then d/c tomorrow. dr gonzalez will follow as outpt. The exam, history, and the medical decision-making described in the above note were completed with the assistance of the mid-level provider. I reviewed and agree with the findings presented. I attest that I had a [id number] encounter with the patient on the same day, and personally performed and documented my assessment and findings in the medical record. Marley Escobar Aug 12, 2016 10:56 Tommy Peters MD Aug 12, 2016 18:37
[2016-08-12] MEDS ORDERED: PANTOPRAZOLE SOD 20 MG DELAYED RELEASE TAB PO ONE (11:15)
[2016-08-12 12:00] VITALS: BP 148/67; PULSE 51; RESP 16; TEMP 96.2; O2SAT 99
--- NOTE | 2016-08-12 12:51 | HHI.GIFU ---
Subjective Remarks Resting in bed. Feeling much better today. Has not had any further episodes of incontinence or diarrhea. Steroids were changed to po, but she has not had the po yet. She has mild lower abdominal soreness, but no significant pain and is hoping to be able to go home tomorrow. (Ana Cristina Kahn Riddhitrent SANDS) Objective Vitals I&O Vital Signs Date Time Temp Pulse Resp B/P Pulse Ox O2 Delivery O2 Flow Rate FiO2 08/12/16 12:00 96.2 51 16 148/67 99 08/12/16 08:00 97.7 60 16 139/75 94 08/12/16 04:00 96.4 54 22 128/66 98 08/12/16 00:00 97.4 59 18 143/84 99 08/11/16 20:00 96.0 67 17 134/75 99 08/11/16 16:00 97.6 64 18 134/69 99 I/O 08/11/16 08/11/16 08/11/16 08/12/16 08/12/16 08/12/16 07:00 15:00 23:00 07:00 15:00 23:00 Intake Total 1500 ml 1680 ml 1031 ml 1625 ml Balance 1500 ml 1680 ml 1031 ml 1625 ml Intake Oral 1680 ml 480 ml 240 ml IV Total 1500 ml 551 ml 1385 ml # Voids 2 4 6 3 Laboratory Date/Time Procedure Status Source Growth 08/09/16 14:55 Cryptosporidium Exam Resulted Stool Stool Pending 08/09/16 14:55 Stool Pus (FIDEL) - Final Resulted Stool Stool FEW WBC'S 08/09/16 14:55 Giardia Antigen (FIDEL) Resulted Stool Stool Pending 08/09/16 14:55 - Final Complete Stool Stool NO ENTERIC PATHOGENS DETECTED BY PCR... 08/08/16 21:00 Aerobic Blood Culture - Preliminary Resulted Blood Peripheral NO GROWTH IN 3 DAYS 08/08/16 21:00 Anaerobic Blood Culture - Preliminary Resulted Blood Peripheral NO GROWTH IN 3 DAYS Imaging Last Impressions Abdomen X-Ray 08/10/16 0600 Signed Impressions: Service Date/Time: July 06:48 - CONCLUSION: Nonspecific bowel gas pattern. Fareed Azul MD FACR Gall Bladder Ultrasound 08/09/16 0000 Signed Impressions: Service Date/Time: Tuesday, August 09, 2016 20:02 - CONCLUSION: 1. Cholelithiasis and gallbladder wall thickening with negative sonographic Chu sign. In the appropriate clinical setting cholecystitis can have this appearance. 2. Hepatomegaly and hepatic steatosis. Jeanmarie Rich MD Abdomen/Pelvis CT 08/08/162004 Signed Impressions: Service Date/Time: Monday, August 08, 2016 23:34 - CONCLUSION: 1. Nonspecific diffuse gallbladder distention with pericholecystic fluid. This finding could be further evaluated with ultrasound. 2. Diffuse hepatic hypodensity indicating hepatic steatosis, new compared to the prior study. 3. Multiple scattered soft tissue nodules in the anterior abdominal wall, left gluteal region, and right sided retroperitoneum as well as left lower lung pulmonary nodule consistent with the patient's history of metastatic melanoma. Some of these areas are larger and some are smaller when compared to the prior study of July 2015. 4. Diffusely distended colon with multiple air-fluid levels suggesting ileus. 5. New atrophy of the pancreatic tail. Hunter Navarrete MD Physical Exam HEENT: Normocephalic; atraumatic; no jaundice. CHEST: CTA CARDIAC: RRR ABDOMEN: Soft, nondistended, mild lower abdominal tenderness; no hepatosplenomegaly; bowel sounds are present in all four quadrants. EXTREMITIES: No clubbing, cyanosis, or edema. SKIN: Normal; no rash; no jaundice. TECHNICAL OPERATIONS MANAGER: No focal deficits; alert and oriented times three. (Ana Cristina Kahn) Assessment and Plan Plan ASSESSMENT: - Diarrhea, possible colitis related to ipilimumab. Abdomen/Pelvis CT (08/08/16 )----> 1. Nonspecific diffuse gallbladder distention with pericholecystic fluid. This finding could be further evaluated with ultrasound. 2. Diffuse hepatic hypodensity indicating hepatic steatosis, new compared to the prior study. 3. Multiple scattered soft tissue nodules in the anterior abdominal wall, left gluteal region, and right sided retroperitoneum as well as left lower lung pulmonary nodule consistent with the patient's history of metastatic melanoma. Some of these areas are larger and some are smaller when compared to the prior study of July 2015. 4. Diffusely distended colon with multiple air-fluid levels suggesting ileus. 5. New atrophy of the pancreatic tail. CDiff negative. Stool few WBC. Giardia pending. No enteric pathogens. Pt was started on Solumedrol and had Remicade on 08/09. She is doing much better and has not had any diarrhea today. Solumedrol was changed to prednisone today. Pain improved. Tolerating diet. Hoping to go home tomorrow. - Abnormal imaging of GB with nonspecific diffuse gallbladder distention with pericholecystic fluid on CT Scan. GB Ultrasound (08/09/16)--> Cholelithiasis and gallbladder wall thickening with negative sonographic Chu sign. In the appropriate clinical setting cholecystitis can have this appearance. 2. Hepatomegaly and hepatic steatosis. No nausea/ RUQ tenderness/Chu's sign. S/P GS evaluation, no plans for surgery. - Leukocytosis. Pt now with wbc of 14.2, although she has been on steroids and this may be related to this as she has remained afebrile. - Pancreatic atrophy. Patient has been on Creon for this - Elevated LFTs/fatty liver, could be secondary to meds, she does drinks 1 c wine daily. Stable. CMP pending. 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 Escobedo on the case, immunotherapy 2 weeks ago - DM type 1 per attending Plan: - NOMI - Cont. Prednisone - S/P Remicade (08/09) per Dr. Escobedo - Monitor stool output - If no further diarrhea and tolerating diet, okay to d/c home in am from GI standpoint - Patient seen and examined by Dr. Crystal and myself and this note is written on his behalf. (Ana Cristina Kahn) Physician Comments Patient seen and examined Agree with above Continue with current supportive care Monitor labs Patient doing much better not much to add from a GI standpoint We will sign off (Alfredo Crystal MD) Ana Cristina Kahn Aug 12, 2016 12:51 Alfredo Crystal MD Aug 12, 2016 17:29
[2016-08-12 16:00] VITALS: BP 144/77; PULSE 53; RESP 16; TEMP 97.6; O2SAT 99
[2016-08-12 20:00] VITALS: BP 144/72; PULSE 58; RESP 16; TEMP 96.1; O2SAT 99
[2016-08-12] MEDS: ZOLPIDEM TARTRATE 5 MG TAB PO PRN (20:50)
[2016-08-12] MEDS ORDERED: predniSONE 20 MG TAB PO ONE (21:00)
[2016-08-13] VITALS: BP 146/67; PULSE 56; RESP 16; TEMP 97.6; O2SAT 98
[2016-08-13 04:00] VITALS: BP 140/71; PULSE 63; RESP 16; TEMP 96.7; O2SAT 97
[2016-08-13] MEDS: INSULIN ASPART SUPPLEMENTAL SCALE SQ SCH (05:32)
[2016-08-13 08:00] VITALS: BP 158/78; PULSE 56; RESP 18; TEMP 96.1; O2SAT 98
[2016-08-13] MEDS: INSULIN DETEMIR 100 UNITS/ML VIAL SQ SCH (08:15)
[2016-08-13] MEDS: SODIUM CHLORIDE IV FLUSH SCH (08:15)
--- NOTE | 2016-08-13 08:50 | PD.ONC.PN ---
Subjective Subjective Remarks Afebrile overnight. Patient resting comfortably. No diarrhea in 48 hours now. She denies pain and feels very ready to go home. Objective Data Date Time Temp Pulse Resp B/P Pulse Ox O2 Delivery O2 Flow Rate FiO2 08/13/16 08:00 96.1 56 18 158/78 98 08/13/16 04:00 96.7 63 16 140/71 97 08/13/16 00:00 97.6 56 16 146/67 98 08/12/16 20:00 96.1 58 16 144/72 99 08/12/16 16:00 97.6 53 16 144/77 99 08/12/16 12:00 96.2 51 16 148/67 99 Result Diagram: 08/11/1682908/11/16 08 Administered Medications Medications (Trade) Dose Ordered Sig/Thierno Route PRN Reason Start Time Stop Time Status Last Admin Dose Admin Morphine Sulfate (Morphine Inj) 3 mg Q3H PRN IV Pain 6-10 08/08/16 22:30 08/11/16 12:07 IV Flush 2 ml 2 ml BID IV FLUSH 08/09/16 21:00 08/12/16 20:51 Sodium Chloride (NS 1000 ml Inj) 1,000 ml @ 84 mls/hr [id number] IV 08/09/16 12:00 08/11/16 20:29 Zolpidem Tartrate (Ambien) 5 mg HS PRN PO insomnia 08/10/16 19:45 08/12/16 20:50 Insulin Detemir (Levemir Inj) 5 units Q12HR SQ 08/12/16 09:00 08/13/16 08:15 Prednisone (Deltasone) 40 mg DAILY PO 08/13/16 09:00 08/13/16 08:14 Pantoprazole Sodium (Protonix) 20 mg DAILY PO 08/13/16 09:00 08/13/16 08:14 Objective Remarks GENERAL: Middle aged female, upright in room in nad. SKIN: Warm and dry. HEAD: Normocephalic. EYES: No injection or drainage. NECK: Supple, trachea midline. CARDIOVASCULAR: Regular rate and rhythm RESPIRATORY: Breath sounds equal bilaterally. No accessory muscle use. GASTROINTESTINAL: Abdomen soft, non-tender, nondistended. +BS EXTREMITIES: No cyanosis MUSCULOSKELETAL: Adequate muscle tone. NEUROLOGICAL: awake and alert, normal speech. moving all extremities. Assessment/Plan Assessment 61y/o female with metastatic ocular melanoma, s/p ipilimumab, diarrhea improved now. Plan 1. oncology clear for discharge. would discharge home on the Prednisone 40mg PO daily with follow up with Dr. Escobedo in 1 week. She was also advised to stop the hydrocortisone she was previously taking and continue home dose Protonix. Marley Escobar Aug 13, 2016 08:50 Tommy Peters MD Aug 13, 2016 17:17
[2016-08-13] MEDS ORDERED: INSU1INJ5 SQ (08:51)
[2016-08-13] MEDS ORDERED: PRED20 PO ×2 (08:53→08:57)
[2016-08-13] MEDS ORDERED: predniSONE 20 MG TAB PO SCH (09:00)
[2016-08-13] MEDS ORDERED: PANTOPRAZOLE SOD 20 MG DELAYED RELEASE TAB PO SCH (09:00)
== END 2016-08-13 10:29 | disposition home or self-care (01) | DRG 394 ==
LOC: NEPA 19:26 → NEDA 22:22 → NEPFCDU 08-09 02:56 → HOCB 08-09 18:59
PROVIDERS: ADMIT Hospitalist; ATTEND Hospitalist
DX: K52.1 Toxic gastroenteritis and colitis (principal); D61.818 Other pancytopenia; C78.00 Secondary malignant neoplasm of unspecified lung; C78.89 Secondary malignant neoplasm of other digestive organs; C79.2 Secondary malignant neoplasm of skin; C43.9 Malignant melanoma of skin, unspecified; K56.7 Ileus, unspecified; C79.89 Secondary malignant neoplasm of other specified sites; T45.1X5A Adverse effect of antineoplastic and immunosuppressive drugs, initial encounter; Y92.9 Unspecified place or not applicable; K86.89 Other specified diseases of pancreas; I10 Essential (primary) hypertension; K21.9 Gastro-esophageal reflux disease without esophagitis; Z88.0 Allergy status to penicillin; E10.65 Type 1 diabetes mellitus with hyperglycemia; Z79.4 Long term (current) use of insulin; Z87.891 Personal history of nicotine dependence; C69.1 Malignant neoplasm of cornea; K82.8 Other specified diseases of gallbladder; Z92.3 Personal history of irradiation; M10.9 Gout, unspecified; E78.00 Pure hypercholesterolemia, unspecified; T38.0X5A Adverse effect of glucocorticoids and synthetic analogues, initial encounter; K76.0 Fatty (change of) liver, not elsewhere classified; Z85.820 Personal history of malignant melanoma of skin; R16.0 Hepatomegaly, not elsewhere classified
CPT/HCPCS: 74000; 74177; 76705; 80048; 80053; 80076; 81001; 82948; 83690; 85007; 85025; 85027; 85610; 85730; 87040; 87205; 87328; 87329; 87493; 87506; J0692; J1745; J1815; J1885; J2270; J2920; J7030; J7050; J7512; Q9967

== ENCOUNTER → 2016-12-18 | Day surgery (SDC) | payer OTHER ==
[~2016-12-18] MED LIST changes: +AMLO5 PO; -AMLO5TAB22 PO; +APIDINJ SQ; -APIDINJ2 SQ; +DRIS50002 PO; -ERGO50000 PO; -HYDRO10 PO; +LACTATED RINGER'S 1000 ML INJ 1,000 ML ONE; +LIDOCAINE 1%/EPINEPHrine 1:100,000 SOLN 20 ML VIAL ONE; +LORA-373 PO; -LORA0.5T PO; +MIDAZOLAM HCL 2 MG/2 ML VIAL ONE; +NAPR220T95 PO; +ONDANSETRON HCL 4 MG/2 ML VIAL IV PUSH ONE; +PANT40TA3 PO; +PRED20 PO; +PROPOFOL 200 MG/20 ML AMP IV ONE; -PROT40TA PO; +VANCOMYCIN HCL 1000 MG VIAL ONE
--- NOTE | 2016-12-18 16:21 | TN ---
cc: EVERETT GONSALES M.D. DATE OF SURGERY 12/18/2016 PREOPERATIVE DIAGNOSIS Metastatic melanoma of the left chest and left axilla. POSTOPERATIVE DIAGNOSIS Metastatic melanoma of the left chest and left axilla. PROCEDURE Excision metastatic melanoma left chest and left axilla 2 cm diameter each with two-layer closure. SURGEON Dr. Everett Gonsales MATHEMATICAL PHYSICIST Yun Sosa, MS-3 ANESTHESIA General with laryngeal mask. INDICATIONS A very pleasant 61-year-old woman with original history of retinal melanoma. She is followed by Dr. Terrell Escobedo. She has subcutaneous masses that enlarge. He and she have requested that I excise these two masses that are now palpable. INTRAOPERATIVE FINDINGS Successful removal of approximate 2 cm diameter lobulated mass that is consistent with metastatic melanoma. They were sent together to pathology. ESTIMATED BLOOD LOSS Less than 2 ml. DESCRIPTION OF PROCEDURE IN DETAIL The patient identified as Ebonie Hudson taken to the operating room and placed in the supine position. Sequential compression devices were placed on bilateral lower extremities. Following induction of adequate general anesthesia with a laryngeal mask the areas of concern were prepped and draped in usual sterile fashion with Betadine. A time-out procedure was performed. Following completion of time-out procedure everyone's satisfaction within the room, proposed incisions were made overlying the palpable masses using a marking pen. Local anesthetic was infiltrated beneath the proposed incisions and attention was first turned to left axilla. Incision was carried out with scalpel and hemostasis controlled with electrocautery. Dissection continued posteriorly. The mass was from surrounding tissues, removed in its entirety using electrocautery and sharp dissection. Wound was irrigated with local anesthetic. Small bleeding points were controlled with electrocautery. The wound was closed in two layers with 3-0 Vicryl and 4-0 Monocryl, dressed with Mastisol one-half inch brown Steri-Strips and Tegaderm with Telfa. Attention was then turned to the chest wall. In the medial border of the breast and the sternum, a local anesthetic was infiltrated and the incision was carried out with scalpel. Hemostasis controlled with electrocautery. The mass was from surrounding tissues using electrocautery. Small amount of subcutaneous fatty tissue was removed along with the mass. Wound was irrigated with local anesthetic, more local anesthetic was placed. Small bleeding points were controlled with electrocautery. The wound was closed in two layers with 3-0 Vicryl and 4-0 Monocryl. Dressing was applied with Mastisol and one-half inch brown Steri-Strips and a Tegaderm with Telfa pad. The patient tolerated the procedures without apparent complication. Sponge, needle and instrument counts were correct at the end of the case. MD ARON Hernandez/NIRMAL /3:46 PM /4:11 PM
== END | disposition home or self-care (01) ==
LOC: ESDC 12:31
PROVIDERS: ATTEND Surgery Trauma Surgery
DX: C79.2 Secondary malignant neoplasm of skin (principal); E11.9 Type 2 diabetes mellitus without complications; Z79.4 Long term (current) use of insulin
CPT/HCPCS: 00400; 11602; 11603; 82948; 88307; J2405; J3010; J3370; J7120; J2250